=== PATIENT | male | born 1950 | race Caucasian/White ===

== ENCOUNTER 2019-04-17 09:56 | Outpatient (CLI) | payer MEDICARE, BC, SELFPAY ==
[2019-04-17 10:45] LABS: Alanine Aminotransferase 20 U/L (0-41); Albumin Level 3.8 g/dL (3.5-5.2); Alkaline Phosphatase 113 IU/L (40-130); Anion Gap 13.6 (5-19); Aspartate Amino Transferase 26 U/L (0-40); Blood Urea Nitrogen 16 mg/dL (8-23); Calcium 9.4 mg/dL (8.5-10.5); Carbon Dioxide 30 mmol/L (22-29); Chloride 103 mmol/L (98-107); Globulin 4.5 g/dL (1.3-4.6); Glomerular Filtration Rate 74.5 mL/min (90-130); Glucose 89 mg/dL (65-115); Potassium 4.6 mmol/L (3.5-5.1); Sodium 142 mmol/L (136-145); Total Bilirubin 0.3 mg/dL (0.15-1.2); Total Protein 8.3 g/dL (6.6-8.7)
[2019-04-17 11:44] LABS: Hepatitis B Surface Antigen. Reactive (Nonreactive)
== END 2019-04-17 09:57 | disposition home or self-care (01) ==
LOC: LAB 10:03
PROVIDERS: Family Provider Family Medicine; PCP Plastic Surgery; Visit Provider Internal Medicine Gastroenterology
DX: B18.1 Chronic viral hepatitis B without delta-agent (principal)
CPT/HCPCS: 36415; 80053; 87340

== ENCOUNTER 2019-12-05 14:54 | Outpatient (CLI) | payer MEDICARE, BC, SELFPAY ==
--- NOTE | 2019-12-05 14:58 | US_ITS ---
WS: [id number] RIGHT UPPER QUADRANT ULTRASOUND HISTORY: NON alcoholic cirrhosis. COMPARISON: 10/28/2018 Liver: 15.8 cm in length. Normal size liver. Coarsened echotexture with no mass. No bile duct dilatat ion. Gallbladder: Prior cholecystectomy. CBD: 0.3 cm Pancreas: Not well visualized. Right kidney: 9.9 cm in length. Normal size and echogenicity. No hydronephrosis or mass. Aorta and IVC: Unremarkable abdominal aorta and IVC. No ascites. US/US abdomen limited [id number] IMPRESSION: 1. Limited upper quadrant ultrasound due to body habitus. 2. Cirrhotic liver with no interval change. 3. Prior cholecystectomy.
[2019-12-05 16:43] LABS: Alanine Aminotransferase 22 U/L (0-41); Albumin Level 3.9 g/dL (3.5-5.2); Alkaline Phosphatase 93 IU/L (40-130); Anion Gap 10.7 (5-19); Aspartate Amino Transferase 26 U/L (0-40); Blood Urea Nitrogen 14 mg/dL (8-23); Carbon Dioxide 28 mmol/L (22-29); Chloride 105 mmol/L (98-107); Globulin 4.4 g/dL (1.3-4.6); Glomerular Filtration Rate 83.9 mL/min (90-130); Glucose 98 mg/dL (65-115); Osmolality Calculated 288 mOsm/kg (285-295); Potassium 4.7 mmol/L (3.5-5.1); Sodium 139 mmol/L (136-145); Total Bilirubin 0.6 mg/dL (0.15-1.2); Total Protein 8.3 g/dL (6.6-8.7)
[2019-12-05 18:14] LABS: Hepatitis B Surface Antigen Reactive (Nonreactive)
[2019-12-06 13:02] LABS: Hepatitis B Envelope Antigen NON-REACTIVE (NON-REACTIVE)
[2019-12-08 14:52] LABS: Hepatitis B Virus DNA <10 NOT DETECTED IU/mL (NOT DETECTED); Hepatitis B Virus DNA PCR <1.00 NOT DETECTED Log IU/mL (NOT DETECTED)
== END 2019-12-05 14:55 | disposition home or self-care (01) ==
LOC: US 14:55
PROVIDERS: PCP Family Medicine; Visit Provider Internal Medicine Gastroenterology
DX: K76.0 Fatty (change of) liver, not elsewhere classified (principal); K74.60 Unspecified cirrhosis of liver; Z90.49 Acquired absence of other specified parts of digestive tract
CPT/HCPCS: 36415; 76705; 80053; 86707; 87340; 87350; 87517

== ENCOUNTER 2019-12-15 08:11 | Outpatient (CLI) | payer MEDICARE, BC, SELFPAY ==
--- NOTE | 2019-12-15 10:29 | XR_ITS ---
WS: [id number] Right foot, 3 views, 12/15/2019 Clinical Data: PAIN/REDNESS/NONHEALING ULCER Comparison: None. Findings: No fractures or dislocations are seen. No bone destruction or erosion is noted. The joint spaces and soft tissues are normal. No evidence of osteomyelitis is seen. XR/XR foot RT min 3V* [id number] Impression: Negative right foot.
== END 2019-12-15 08:12 | disposition home or self-care (01) ==
LOC: WOUND 08:14
PROVIDERS: PCP Family Medicine; Visit Provider Surgery
DX: L97.512 Non-pressure chronic ulcer of other part of right foot with fat layer exposed (principal); R52 Pain, unspecified
CPT/HCPCS: 11042; 73630; G0463; L3260

== ENCOUNTER 2019-12-22 09:05 | Outpatient (CLI) | payer MEDICARE, BC, SELFPAY | END 2019-12-22 09:06 | disposition home or self-care (01) | LOC: WOUND 09:06 | PROVIDERS: PCP Family Medicine; Visit Provider Surgery | DX: L97.512 Non-pressure chronic ulcer of other part of right foot with fat layer exposed (principal) | CPT/HCPCS: 11042 ==

== ENCOUNTER 2019-12-29 09:12 | Outpatient (CLI) | payer MEDICARE, BC, SELFPAY | END 2019-12-29 09:13 | disposition home or self-care (01) | LOC: WOUND 09:13 | PROVIDERS: PCP Family Medicine; Visit Provider Nurse Practitioner Family | DX: L97.512 Non-pressure chronic ulcer of other part of right foot with fat layer exposed (principal) | CPT/HCPCS: 11042 ==

== ENCOUNTER 2020-01-05 10:13 | Outpatient (CLI) | payer MEDICARE, BC, SELFPAY | END 2020-01-05 10:14 | disposition home or self-care (01) | LOC: WOUND 10:14 | PROVIDERS: PCP Family Medicine; Visit Provider Surgery | DX: L97.512 Non-pressure chronic ulcer of other part of right foot with fat layer exposed (principal) | CPT/HCPCS: 11042 ==

== ENCOUNTER 2020-01-12 09:53 | Outpatient (CLI) | payer MEDICARE, BC, SELFPAY | END 2020-01-12 09:54 | disposition home or self-care (01) | LOC: WOUND 09:54 | PROVIDERS: PCP Family Medicine; Visit Provider Surgery | DX: I96 Gangrene, not elsewhere classified; Z87.891 Personal history of nicotine dependence; L97.512 Non-pressure chronic ulcer of other part of right foot with fat layer exposed | CPT/HCPCS: 11042 ==

== ENCOUNTER 2020-01-15 08:28 | Outpatient (CLI) | payer MEDICARE, BC, SELFPAY ==
--- NOTE | 2020-01-15 08:35 | USCV_ITS ---
Víctor Light Age: 69 Gender: M : 1950 Exam Date: 01/15/2020 08:37 Ordering Phys: Montana Phillips MD Technologist: Exam Location: [facility]_ Indication: non healing ulcer RIGHT LEFT Brachial 117.00 mmHg Brachial 154.00 mmHg Pressure (mmHg) Waveform Pressure (mmHg) Waveform 146.00 Above Knee 147.00 Below Knee 160.00 AGITATOR OPERATOR 147.00 DPA 1.04 Ankle/Brachial Index 117.00 Pre-Exercise Toe Pressure 0.76 Pre-Exercise Toe/Brachial Index FINDINGS Normal resting LENA on the right side. Normal resting TBI on the right side. PVR waveforms showing loss of dicrotic notch CONCLUSIONS No evidence of any significant arterial obstruction, based on the above findings. Some features of arterial sclerosis Dr uJany Ulloa MD [facility] (Electronically Signed) Final Date: 16 January 2020 10:49 S
== END 2020-01-15 08:29 | disposition home or self-care (01) ==
LOC: US 08:29
PROVIDERS: PCP Family Medicine; Visit Provider Surgery
DX: L97.919 Non-pressure chronic ulcer of unspecified part of right lower leg with unspecified severity (principal)
CPT/HCPCS: 93922

== ENCOUNTER 2020-01-26 09:39 | Outpatient (CLI) | payer MEDICARE, BC, SELFPAY | END 2020-01-26 09:40 | disposition home or self-care (01) | LOC: WOUND 09:40 | PROVIDERS: PCP Family Medicine; Visit Provider Surgery | DX: L97.512 Non-pressure chronic ulcer of other part of right foot with fat layer exposed (principal) | CPT/HCPCS: 11042 ==

== ENCOUNTER 2020-02-02 10:10 | Outpatient (CLI) | payer MEDICARE, BC, SELFPAY | END 2020-02-02 10:11 | disposition home or self-care (01) | LOC: WOUND 10:13 | PROVIDERS: PCP Family Medicine; Visit Provider Surgery | DX: Z09 Encounter for follow-up examination after completed treatment for conditions other than malignant neoplasm (principal) | CPT/HCPCS: 99212 ==

== ENCOUNTER 2020-02-09 14:26 | Outpatient (CLI) | payer MEDICARE, BC, SELFPAY | END 2020-02-09 14:27 | disposition home or self-care (01) | LOC: WOUND 14:27 | PROVIDERS: Visit Provider Surgery | DX: L97.512 Non-pressure chronic ulcer of other part of right foot with fat layer exposed (principal) | CPT/HCPCS: 11042 ==

== ENCOUNTER 2020-02-13 15:20 | Outpatient (CLI) | payer MEDICARE, BC, SELFPAY | END 2020-02-13 15:21 | disposition home or self-care (01) | LOC: WOUND 15:21 | PROVIDERS: Visit Provider Nurse Practitioner Family | DX: I96 Gangrene, not elsewhere classified (principal); L97.512 Non-pressure chronic ulcer of other part of right foot with fat layer exposed | CPT/HCPCS: 11042 ==

== ENCOUNTER 2020-02-19 14:20 | Outpatient (CLI) | payer MEDICARE, BC, SELFPAY | END 2020-02-19 14:21 | disposition home or self-care (01) | LOC: WOUND 14:22 | PROVIDERS: Visit Provider Nurse Practitioner Family | DX: Z09 Encounter for follow-up examination after completed treatment for conditions other than malignant neoplasm (principal) | CPT/HCPCS: 99212 ==

== ENCOUNTER 2020-02-28 06:00 | Outpatient (RCR) | payer MEDICARE, BC, SELFPAY | END 2020-03-24 23:59 | disposition home or self-care (01) | LOC: SPT 06:00 | PROVIDERS: Referring Provider Nurse Practitioner Family; Visit Provider Nurse Practitioner Family | DX: G25.0 Essential tremor (principal) | CPT/HCPCS: 97110; 97112; 97161 ==

== ENCOUNTER 2020-03-25 06:00 | Outpatient (RCR) | payer MEDICARE, BC, SELFPAY | END 2020-04-21 23:59 | disposition home or self-care (01) | LOC: SPT 06:00 | PROVIDERS: Referring Provider Nurse Practitioner Family; Visit Provider Nurse Practitioner Family | DX: G25.0 Essential tremor (principal) | CPT/HCPCS: 97110; 97112; 97530 ==

== ENCOUNTER 2020-04-22 06:00 | Outpatient (RCR) | payer MEDICARE, BC, SELFPAY | END 2020-05-22 23:59 | disposition home or self-care (01) | LOC: SPT 06:00 | PROVIDERS: Referring Provider Nurse Practitioner Family; Visit Provider Nurse Practitioner Family | DX: G25.0 Essential tremor (principal) | CPT/HCPCS: 97110 ==

== ENCOUNTER 2020-04-24 09:29 | Emergency (ER) | payer MEDICARE, BC, SELFPAY ==
[2020-04-24 09:31] VITALS: BP 152/88; PULSE 64; RESP 18; TEMP 36.5; O2SAT 98; BMI 38.7
--- NOTE | 2020-04-24 09:40 | XR_ITS ---
WS: [id number] Chest with left rib detail, 04/24/2020 Clinical Data: fall/pain Comparison: Portable chest, 03/10/2017. Findings: The lungs show no nodules, masses, or effusions. The heart is normal. No pneumonia or pneumothorax is seen. The aortic arch is tortuous. There are stimulator generators overlying both lower lungs with wires ex tending superiorly. The ribs are intact. No rib fractures seen. No subcutaneous emphysema is present. The left stimulator generator obscures slight detail over the left superior ribs. There are clips in the right upper quadrant from a cholecystectomy XR/XR ribs LT mn 3V w CXR1V [id number] Impression: Negative chest with left rib detail.
--- NOTE | 2020-04-24 09:40 | W.ED.FALL ---
HPI - Fall General: Chief Complaint: Fall Stated Complaint: post fall/pain in ribs Time Seen by Provider: 04/24/20 09:33 Source: patient Mode of arrival: ambulatory Limitations: no limitations History of Present Illness: HPI Narrative: Patient is a 69-year-old male who presents to ED today with a complaint of left rib pain. Patient tells me approximately a week ago he slipped and fell on ice and landed onto his chest and left side. Patient tells me he began having pain immediately. He states pain has failed to improve thus prompting his visit today. He is having pain with deep inhalation, coughing, and palpation over the left anterior ribs. He denies abdominal pain, nausea, vomiting. Denies lightheadedness, dizziness, syncopal episodes. MD complaint: fall Onset (ago): day(s) Fall from: standing Fall witnessed: no Place fall occurred: home Loss of consciousness: None Prolonged down time: no Symptoms prior to fall: none Context: tripped/slipped (slipped on ice) Location of injury: chest Associated symptoms-after fall: Reports no associated symptoms and chest pain (L rib pain); Denies abdominal pain, difficulty walking, headache(s), lightheadedness or neck pain Review of Systems Const: Denies: fever(s), chills, body aches, fatigue or malaise Eyes: Denies: change in vision, blurry vision or photophobia ENMT: Denies: odynophagia Card: Reports: chest pain (L rib pain); Denies: palpitations, irregular heart rhythm, edema, swelling of feet/ankles, lightheadedness, syncope, pre-syncope, dyspnea on exertion, orthopnea or leg pain with exertion Resp: Denies: dyspnea, productive cough, non-productive cough, wheezing, pain on inspiration, hemoptysis or chest congestion GI: Denies: abdominal pain, nausea, vomiting, heartburn or diarrhea : Denies: flank pain, difficulty urinating or dysuria Musc: Denies: neck pain, back pain or joint pain Skin/Breast: Denies: rash Neuro: Denies: headache(s), numbness in extremities, weakness in extremities, sensory changes, difficulty walking, frequent falls or dizziness Physical Exam Const: COMMON NORMALS: no acute distress, patient oriented x3, no limitations and alert GENERAL APPEARANCE: cooperative NUTRITIONAL APPEARANCE: obese ORIENTATION/CONSCIOUSNESS: Yes awake, Yes oriented to person, Yes oriented to place and Yes oriented to time HENMT: COMMON NORMALS: normocephalic and atraumatic HEAD & SCALP: normocephalic and atraumatic Neck/C-Spine: COMMON NORMALS: full ROM GENERAL: Yes normal visual inspection CERVICAL SPINE: Yes cervical ROM normal, No pain with cervical ROM, No Cervical spine tenderness and No Paracervical muscle tenderness Chest: COMMONS NORMALS: normal inspection of the chest OTHER: TTP of ribs just under L breast; palpation directly reproduces patient's pain; no crepitus; lungs CTA Chest images (male): 1. TTP Resp: COMMON NORMALS: normal respiratory effort and clear to auscultation bilaterally AUSCULTATION: clear to auscultation bilaterally Cardio: COMMON NORMALS: regular rate and regular rhythm RATE: regular rate RHYTHM: regular rhythm GI: COMMON NORMALS: Normal to inspection, nondistended, normoactive bowel sounds present, Soft to palpation, non-tender, No hepatosplenomegaly present and no masses INSPECTION: Yes normal to inspection and Yes other (no ecchymosis to chest or abdomen ) PALPATION: Yes Soft to palpation and Yes No hepatosplenomegaly present Back/Pelvis: COMMON NORMALS: thoracic and lumbar spine normal to inspection, no thoracic nor lumbar tenderness and thoraco-lumbar ROM normal Extremity: COMMON NORMALS: normal to inspection and full ROM GENERAL: Yes normal exam except as noted Neuro: COMMON NORMALS: patient oriented x3 SENSORIUM/ORIENTATION: Yes alert, Yes oriented to person, Yes oriented to place and Yes oriented to time Skin: COMMON NORMALS: no rashes or lesions noted GENERAL SKIN EXAM: no rashes or lesions noted Course Vital Signs: Vital signs: Vital Signs Temperature 98.9 F 04/24/20 09:43 Pulse Rate 62 04/24/20 10:50 Respiratory Rate 16 04/24/20 10:50 Blood Pressure 109/62 04/24/20 10:50 Pulse Oximetry 98 04/24/20 10:50 MDM - Fall Imaging Data^: CXR with L ribs: Radiologist's impression: [facility] [address] [place] [address] XRay Report Signed Patient: Víctor Light Unit #: [id number] : 1950 Age/Sex: 69 / M ADM Date: 04/24/20 Loc: ER Room/Bed: Attending Dr: Ordering Provider/Ordering MD: Aditi Gomez Date of Service: 04/24/20 Procedure(s): XR ribs LT mn 3V w CXR1V [id number] Accession Number(s): [id number] Report Number: [id number] WS: [id number] Chest with left rib detail, 04/24/2020 Clinical Data: fall/pain Comparison: Portable chest, 03/10/2017. Findings: The lungs show no nodules, masses, or effusions. The heart is normal. No pneumonia or pneumothorax is seen. The aortic arch is tortuous. There are stimulator generators overlying both lower lungs with wires extending superiorly. The ribs are intact. No rib fractures seen. No subcutaneous emphysema is present. The left stimulator generator obscures slight detail over the left superior ribs. There are clips in the right upper quadrant from a cholecystectomy XR/XR ribs LT mn 3V w CXR1V 72223 Impression: Negative chest with left rib detail. Dictated By: Lorna Liu MD Signed By: Lorna Liu MD Signed Date/Time: 04/24/20 1045 DD/ 1042 Discharge Plan Discharge Patient Disposition: Home Clinical Impression: Contusion of rib on left side Qualifiers: Encounter type: initial encounter Qualified Code(s): S20.212A - Contusion of left front wall of thorax, initial encounter Condition: Stable Prescriptions: New hydrocodone-acetaminophen 5-325 mg tablet 1 tab PO Q6H PRN (Reason: pain) Qty: 14 RF: 0 No Action multivitamin Tablet 1 tab PO BID RF: 0 Vitamin C 1,000 mg Tablet 1,000 mg PO Q12H RF: 0 flaxseed oil 1,000 mg Capsule 1,000 mg PO DAILY RF: 0 propranolol 40 mg tablet 40 mg PO TID RF: 0 tolterodine 2 mg tablet 2 mg PO BID RF: 0 Colace 100 mg Capsule 100 mg PO TID RF: 0 tenofovir disoproxil fumarate 300 mg Tablet 300 mg PO DAILY RF: 0 Senna Laxative 25 mg Tablet 25 mg PO QPM RF: 0 Fish Oil 1,000 mg (120 mg-180 mg) Capsule 1 cap PO DAILY RF: 0 saw palmetto 1 cap PO BID RF: 0 Discharge Orders: Discharge ED (Routine); Ordered 04/24/20 Ordered By: Aditi Gomez Patient Instructions: Opioid Safety Activity Restrictions/Additional Instructions: [facility] is committed to fighting the nationwide opiate epidemic. We are providing ALL patients with information regarding opiate safety. If you received opiate pain medication during your stay or if you received a prescription for opiate pain medication-please review this handout. If not, you may disregard. Thank you. Please return to the emergency department for worsening pain, difficulty breathing, fevers, pain moving into your shoulder or jaw, abdominal pain, abdominal bruising, vomiting, or any other concerns you may have. Coding Level of Care Code ED Salvage Determiner for Day Fuentes Exam Comprehensive
[2020-04-24 09:43] VITALS: BP 152/88; PULSE 62; RESP 20; TEMP 37.2; O2SAT 97
[2020-04-24 10:50] VITALS: BP 109/62; PULSE 62; RESP 16; O2SAT 98
--- NOTE | 2020-04-24 10:51 | PC.NURSE ---
patient stated as long as i am not moving the pain is 1, if I try to lift my arm, the pain will be 7 or 8 , no acute distress noted at this time.
[2020-04-24 11:21] VITALS: BP 127/70; PULSE 66; RESP 16; O2SAT 98
== END 2020-04-24 11:22 | disposition home or self-care (01) ==
PROVIDERS: Emergency Provider Physician Assistant
DX: S20.212A Contusion of left front wall of thorax, initial encounter (principal); W00.0XXA Fall on same level due to ice and snow, initial encounter
CPT/HCPCS: 71101; 99282

== ENCOUNTER 2020-09-16 07:52 | Outpatient (CLI) | payer MEDICARE, BC, SELFPAY ==
--- NOTE | 2020-09-16 08:03 | US_ITS ---
WS: [id number] ULTRASOUND ABDOMEN LIMITED CLINICAL INFORMATION: CHRONIC HEPATITIS B VIRUS INFECTION/FATTY LIVER COMPARISON: Ultrasound December 05, 2019 FINDINGS: Liver Size: Mild hepatomegaly Craniocaudal length: 14.7 cm. Echogenicity: Coarse Surface nodularity: None. Mass (size and location): None. Bile ducts Intrahepatic ducts: Normal. Common bile duct diameter: 0.6 cm. Gallbladder Removed Pancreas Normal as visualized. Right kidney: Normal. Hydronephrosis: None. Size: 10.1 cm x 5.6 cm x 5.7 cm. Abdominal aorta and IVC Visualized portions are normal. Ascites: None. US/US abdomen limited [id number] IMPRESSION: 1. Mild hepatomegaly. Coarse hepatic echotexture likely due to hepatocellular disease. 2. Cholecystectomy. 3. No hydronephrosis in right kidney.
[2020-09-16 09:14] LABS: Tumor Marker Alpha Fetoprotein 1.5 ng/mL (0-8.3)
[2020-09-16 12:55] LABS: Hepatitis B Surface Antigen Reactive (Nonreactive)
[2020-09-17 12:57] LABS: Hepatitis B Envelope Antigen NON-REACTIVE (NON-REACTIVE); Hepatitis B Virus DNA <10 DETECTED IU/mL (NOT DETECTED); Hepatitis B Virus DNA PCR <1.00 DETECTED Log IU/mL (NOT DETECTED)
== END 2020-09-16 07:53 | disposition home or self-care (01) ==
PROVIDERS: PCP Family Medicine; Visit Provider Internal Medicine Gastroenterology
DX: B18.1 Chronic viral hepatitis B without delta-agent (principal); R16.0 Hepatomegaly, not elsewhere classified; Z90.49 Acquired absence of other specified parts of digestive tract
CPT/HCPCS: 36415; 76705; 82105; 86707; 87340; 87350; 87517

== ENCOUNTER 2020-09-19 08:27 | Outpatient (RCR) | payer MEDICARE, BC, SELFPAY | END 2020-09-21 23:59 | disposition home or self-care (01) | LOC: SOT 08:27 | PROVIDERS: PCP Family Medicine; Referring Provider Nurse Practitioner Family; Visit Provider Nurse Practitioner Family | DX: G25.0 Essential tremor (principal) | CPT/HCPCS: 97167 ==

== ENCOUNTER 2020-09-22 06:00 | Outpatient (RCR) | payer MEDICARE, BC, SELFPAY | END 2020-10-22 23:59 | disposition home or self-care (01) | LOC: SOT 06:00 | PROVIDERS: PCP Family Medicine; Referring Provider Nurse Practitioner Family; Visit Provider Nurse Practitioner Family | DX: G25.0 Essential tremor (principal) | CPT/HCPCS: 97110; 97530; 97535 ==

== ENCOUNTER 2021-03-26 07:07 | Outpatient (CLI) | payer MEDICARE, BC, SELFPAY ==
--- NOTE | 2021-03-26 07:28 | US_ITS ---
WS: [id number] ULTRASOUND ABDOMEN LIMITED CLINICAL INFORMATION: HCC SCREEN HEPATITIS B,NAFLD COMPARISON: September 16, 2020 FINDINGS: Liver Size: Mild hepatomegaly Craniocaudal length: 16.2 cm. Echogenicity: Coarse Surface nodularity: None. Mass (size and location): None. Bile ducts Intrahepatic ducts: Normal. Common bile duct diameter: 0.4 cm. Gallbladder Removed Pancreas Not well visualized due to bowel gas Right kidney: Normal. Hydronephrosis: None. Size: 10.1 cm x 6.1 cm x 5.7 cm. Abdominal aorta and IVC Visualized portions are normal. Ascites: None. US/US abdomen limited [id number] IMPRESSION: 1. Mild hepatomegaly with diffuse fatty infiltration. 2. Prior cholecystectomy. 3. No hydronephrosis in right kidney. 4. Normal common bile duct measuring 3.9 mm
[2021-03-26 09:22] LABS: Tumor Marker Alpha Fetoprotein 1.8 ng/mL (0-8.3)
[2021-03-26 09:23] LABS: Hepatitis B Surface AB 3.5 (11.5-1000); Hepatitis B Surface Antigen Reactive (Nonreactive)
[2021-03-26 09:34] LABS: Alanine Aminotransferase 22 U/L (0-41); Albumin Level 3.7 g/dL (3.5-5.2); Alkaline Phosphatase 103 IU/L (40-130); Anion Gap 13.2 (5-19); Aspartate Amino Transferase 36 U/L (0-40); Blood Urea Nitrogen 14 mg/dL (8-23); Calcium 8.5 mg/dL (8.5-10.5); Carbon Dioxide 26 mmol/L (22-29); Chloride 102 mmol/L (98-107); Globulin 4.1 g/dL (1.3-4.6); Glomerular Filtration Rate 83.7 mL/min (90-130); Glucose 83 mg/dL (65-115); Osmolality Calculated 284 mOsm/kg (285-295); Potassium 4.2 mmol/L (3.5-5.1); Sodium 137 mmol/L (136-145); Total Bilirubin 0.6 mg/dL (0.15-1.2); Total Protein 7.8 g/dL (6.6-8.7)
[2021-03-29 11:27] LABS: Hepatitis B Envelope Antigen NON-REACTIVE (NON-REACTIVE)
[2021-03-29 23:36] LABS: Hepatitis B Virus DNA <10 NOT DETECTED IU/mL (NOT DETECTED); Hepatitis B Virus DNA PCR <1.00 NOT DETECTED Log IU/mL (NOT DETECTED)
== END 2021-03-26 07:08 | disposition home or self-care (01) ==
LOC: RAD 07:23
PROVIDERS: PCP Family Medicine; Visit Provider Internal Medicine Gastroenterology
DX: B18.1 Chronic viral hepatitis B without delta-agent (principal); R16.0 Hepatomegaly, not elsewhere classified; K76.0 Fatty (change of) liver, not elsewhere classified; Z90.49 Acquired absence of other specified parts of digestive tract
CPT/HCPCS: 36415; 76705; 80053; 82105; 86706; 87340; 87350; 87517

== ENCOUNTER 2021-07-24 13:40 | Outpatient (CLI) | payer MEDICARE, BC, SELFPAY ==
[2021-07-24 14:41] LABS: Basophils # 0.1 10^3/uL (0.0-0.1); Basophils % 0.5 %; Eosinophils # 0.1 10^3/uL (0.0-0.8); Eosinophils % 0.9 %; Hematocrit 40.9 % (42.0-52.0); Hemoglobin 13.1 g/dL (11.7-16.6); Lymphocytes # 3.1 10^3/uL (0.8-4.8); Lymphocytes % 31.6 %; Mean Corpuscular Hemoglobin 31.4 pg (28.0-34.0); Mean Corpuscular Volume 98.1 fl (80-94); Mean Platelet Volume 9.1 fL (7.4-10.4); Monocytes # 1.5 10^3/uL (0.2-0.9); Monocytes % 14.9 %; Neutrophils # 5.02 10^3/uL (1.8-7.7); Neutrophils % 51.8 %; Nucleated Red Blood Cells % 0 %; Platelet Count 206 10^3/cmm (130-400); Red Blood Count 4.17 10^6/uL (4.1-5.3); Red Cell Distribution Width 13.4 % (12.1-15.1); White Blood Count 9.7 10^3/uL (4.0-10.0)
[2021-07-24 16:40] LABS: Erythrocyte Sedimentation Rate 35 mm/hr (0-10)
== END 2021-07-24 13:41 | disposition home or self-care (01) ==
PROVIDERS: PCP Family Medicine; Visit Provider Neurological Surgery
DX: G25.0 Essential tremor (principal)
CPT/HCPCS: 85025; 85651; 86140

== ENCOUNTER 2021-09-15 06:07 | Outpatient (CLI) | payer MEDICARE, BC, SELFPAY ==
--- NOTE | 2021-09-15 | US_ITS ---
WS: [id number] RIGHT UPPER QUADRANT ULTRASOUND HISTORY: FOLLOW UP ON FATTY LIVER. COMPARISON: 03/26/2021, 11/23/2016 and 09/16/2020 Liver: 16.2 cm in length. Liver is normal size with only very mild increased echogenicity. The portal triads are still evident. No mass or bile duct dilatation. The liver has improved in size and steato sis since 2017. Portal Vein: Normal hepatopetal flow with monophasic waveform. Gallbladder: Status post cholecystectomy. CBD: 0.7 cm Pancreas: Normal size and echogenicity. Right kidney: 10.4 cm in length. Normal size and echogenicity. No hydronephrosis or mass. Aorta and IVC: Unremarkable abdominal aorta and IVC. No ascites. US/US abdomen limited 03107 IMPRESSION: 1. Status post cholecystectomy. 2. Normal size liver with only minimal coarse echotexture which could be relat ed to minimal hepatic steatosis or hepatocellular disease such as cirrhosis. As compared to prior studies from 2017 liver has decreased in size and also hepat ic steatosis.
== END 2021-09-15 06:08 | disposition home or self-care (01) ==
LOC: RAD 06:08
PROVIDERS: PCP Family Medicine; Visit Provider Internal Medicine Gastroenterology
DX: K76.0 Fatty (change of) liver, not elsewhere classified (principal); Z90.49 Acquired absence of other specified parts of digestive tract
CPT/HCPCS: 76705

== ENCOUNTER 2021-10-14 06:00 | Outpatient (RCR) | payer MEDICARE, BC, SELFPAY | END 2021-10-22 23:59 | disposition home or self-care (01) | LOC: SST 06:00 | PROVIDERS: PCP Family Medicine; Visit Provider Nurse Practitioner Gerontology | DX: R13.10 Dysphagia, unspecified (principal) | CPT/HCPCS: 92610 ==

== ENCOUNTER 2021-11-27 10:42 | Outpatient (CLI) | payer MEDICARE, BC, SELFPAY ==
--- NOTE | 2021-11-27 10:55 | FL_ITS ---
WS: [id number] FL barium swallow modifd 62200 REASON FOR EXAM: Other dysphagia FLUOROSCOPY TIME: 2min [id number] # OF SPOT FILMS: 1 FINDINGS: Examination was supervised by the speech therapy department. With the patient in the upright sitting position the swallowing of varying consistencies of barium wa s monitored and recorded fluoroscopically. Patient was noted to aspirate without proper chin tuck. Detailed analysis report will be rendered by the speech therapy department. FL/FL barium swallow modifd [id number] IMPRESSION: Modified barium swallow as above.
== END 2021-11-27 10:43 | disposition home or self-care (01) ==
LOC: RAD 10:45
PROVIDERS: PCP Family Medicine; Visit Provider Psychiatry & Neurology Neurology
DX: G25.0 Essential tremor (principal); R13.19 Other dysphagia
CPT/HCPCS: 74230; 92611

== ENCOUNTER 2021-12-23 06:00 | Outpatient (RCR) | payer MEDICARE, BC, SELFPAY | END 2022-01-20 16:37 | disposition home or self-care (01) | LOC: SST 06:00 | PROVIDERS: PCP Family Medicine; Visit Provider Nurse Practitioner Gerontology | DX: R13.10 Dysphagia, unspecified (principal) | CPT/HCPCS: 92526 ==

== ENCOUNTER → 2021-12-30 07:58 | Outpatient (BNVA) | payer MEDICARE, BC, SELFPAY | PROVIDERS: PCP Family Medicine; Visit Provider Surgery | DX: Z86.010 Personal history of colon polyps (principal) | CPT/HCPCS: 99203 ==

== ENCOUNTER 2022-03-11 06:54 | Day surgery (SDC) | payer MEDICARE, BC, SELFPAY ==
[2022-03-09 13:14] VITALS: BMI 28.3
[2022-03-11 07:11] VITALS: BP 97/58; PULSE 56; RESP 18; TEMP 36.2; O2SAT 98
[2022-03-11] MEDS: sodium chloride 0.9% 1,000 ML 30 ML IV (07:29)
--- NOTE | 2022-03-11 07:50 | ANES.PREANE2 ---
Pre-Anesthetic Assessment Height/Weight: Height 1.74 m Weight 85.729 kg Temp Pulse Resp BP Pulse Ox O2 Del Method 97.1 F L 56 L 18 97/58 98 03/11/22 07:11 03/11/22 07:11 03/11/22 07:11 03/11/22 07:11 03/11/22 07:11 03/11/22 07:11 Preop Diagnosis: Screening Operation Date: 03/11/22 08:30 Proposed Procedures p Colonoscopy 50446,Z86.010(Not Applicable) - Graeme Zurita DO Familial anesthetic complications: None Was Beta Josse taken within 24 hours: Yes Was Clonidine taken within 24 hours: N/A Last intake: Intake Last Liquid Date 03/10/22 Last Liquid Time 22:00 Last Solid Date 03/09/22 Last Solid Time 23:00 Social No alcohol and No tobacco Previous smoker- quit 1987 Exam alert, oriented x 3, clear to auscultation bilaterally and regular rate & rhythm Airway Submandibular: within normal limits Cervical ROM: within normal limits Mallampati: Class II Dentition: false History/ROS No significant history except as noted Pulmonary None reported CV/HEM None reported Takes propanolol for tremor None reported Hepatic Chronic Hepatitis B GI None reported Metabolic None reported Musc/skel None reported Neuropsych Dual DBS for essential tremor Anesthetic Plan ASA status: 3 Anesthesia: Anesthesia Evaluation and MAC Risk of > 500 ml blood loss (7ml/kg in children): No Medications/Allergies Home Medications Medication Instructions Recorded Confirmed Last Taken Type ascorbic acid (vitamin C) 1,000 mg 1,000 mg PO Q12H 04/24/20 03/11/22 03/09/22 History tablet (Vitamin C) docusate sodium 100 mg capsule 100 mg PO TID 04/24/20 03/11/22 03/10/22 History (Colace) flaxseed oil 1,000 mg capsule 1,000 mg PO DAILY 04/24/20 03/11/22 03/09/22 History hydrocodone 5 mg-acetaminophen 325 1 tab PO Q6H PRN pain #14 tabs 04/24/20 03/11/22 Unknown Rx mg tablet multivitamin 1 tab PO BID 04/24/20 03/11/22 03/09/22 History omega 4-vdh-gaz-fish oil 1,000 mg 1 cap PO DAILY 0303/11/22 03/09/22 History (120 mg-180 mg) capsule (Fish Oil) propranolol 40 mg tablet 40 mg PO TID 04/24/20 03/11/22 03/11/22 History saw palmetto 1 cap PO BID 04/24/20 03/11/22 03/09/22 History sennosides 25 mg tablet 25 mg PO QPM 04/24/20 03/11/22 03/09/22 History tenofovir disoproxil fumarate 300 300 mg PO DAILY 04/24/20 03/11/22 03/11/22 History mg tablet tolterodine 2 mg tablet 2 mg PO BID 04/24/20 03/11/22 03/09/22 History fiber 2.6 cap PO QID 03/09/22 03/11/22 03/09/22 History lactobacillus comb no.10 20 20,000 mmu cells PO BID 03/09/22 03/11/22 03/09/22 History billion cell capsule (Probiotic) Allergies Allergy/AdvReac Type Severity Reaction Status Date / Time adhesive Allergy Unknown Verified 03/11/22 07:08 adhesive tape Allergy Unknown Verified 03/11/22 07:08 butorphanol [From Stadol] Allergy ADR/ALGY-Hy Verified 03/11/22 07:08 potension Iodinated Contrast Media Allergy ALGY-Bliste Verified 03/11/22 07:08 r Current Medications Generic Name Dose Route Start Last Admin Trade Name Freq PRN Reason Stop Dose Admin Sodium Chloride 1,000 mls @ 30 mls/hr 03/11/22 07:00 03/11/22 07:29 Sodium Chloride 0.9% IV 03/12/22 06:59 30 mls/hr .Q24H TISHA Administration PFSH Anesthesia Medical History (Updated 12/30/21 @ 08:29 by Graeme Zurita DO) History of colon polyps History of hemorrhoids Surgical History History of colonoscopy History of laparoscopic appendectomy History of laparoscopic cholecystectomy History of rhinoplasty History of tonsillectomy and adenoidectomy Status post deep brain stimulator placement Social History Smoking and tobacco status: former smoker Data Anesthesia Cardiac Studies: No Data to Display
--- NOTE | 2022-03-11 08:47 | P.HP_ITS ---
Providers/Chief Complaint Primary Care Provider: Miladis Farias MD Chief Complaint: Z86.010 History of Present Illness Víctor Light is a 71 year old male here for colonoscopy Medications/Allergies Home Medications Medication Instructions Recorded Confirmed Last Taken Type ascorbic acid (vitamin C) 1,000 mg 1,000 mg PO Q12H 04/24/20 03/11/22 03/09/22 H istory tablet (Vitamin C) docusate sodium 100 mg capsule 100 mg PO TID 04/24/20 03/11/22 03/10/22 History (Colace) flaxseed oil 1,000 mg capsule 1,000 mg PO DAILY 04/24/20 03/11/22 03/09/22 History hydrocodone 5 mg-acetaminophen 325 1 tab PO Q6H PRN pain #14 tabs 04/24/20 03/11/22 Unknown Rx mg tablet multivitamin 1 tab PO BID 04/24/20 03/11/22 03/09/22 History omega 7-rtl-wuq-fish oil 1,000 mg 1 cap PO DAILY 04/24/20 03/11/22 03/09/22 History (120 mg-180 mg) capsule (Fish Oil) propranolol 40 mg tablet 40 mg PO TID 04/24/20 03/11/22 03/11/22 History saw palmetto 1 cap PO BID 04/24/20 03/11/22 03/09/22 History sennosides 25 mg tablet 25 mg PO QPM 04/24/20 03/11/22 03/09/22 History tenofovir disoproxil fumarate 300 300 mg PO DAILY 04/24/20 03/11/22 03/11/22 History mg tablet tolterodine 2 mg tablet 2 mg PO BID 04/24/20 03/11/22 03/09/22 History fiber 2.6 cap PO QID 03/09/22 03/11/22 03/09/22 History lactobacillus comb no.10 20 20,000 mmu cells PO BID 03/09/22 03/11/22 03/09/22 History billion cell capsule (Probiotic) Allergies Allergy/AdvReac Type Severity Reaction Status Date / Time adhesive Allergy Unknown Verified 03/11/22 07:08 adhesive tape Allergy Unknown Verified 03/11/22 07:08 butorphanol [From Stadol] Allergy ADR/ALGY-Hy Verified 03/11/22 07:08 potension Iodinated Contrast Media Allergy LALA-Carlos Verified 03/11/22 07:08 r PFSH Acute PFSH: Medical History (Updated 12/30/21 @ 08:29 by Graeme Zurita DO) History of colon polyps History of hemorrhoids Surgical History History of colonoscopy History of laparoscopic appendectomy History of laparoscopic cholecystectomy History of rhinoplasty History of tonsillectomy and adenoidectomy Status post deep brain stimulator placement Social History Smoking and tobacco status: former smoker Vitals/I&O/Wt Last Vital Signs Temp 97.1 F L 03/11/22 07:11 Pulse 56 L 03/11/22 07:11 Resp 18 03/11/22 07:11 BP 97/58 03/11/22 07:11 Pulse Ox 98 03/11/22 07:11 O2 Del Method 03/11/22 07:11 Weight last 48 hrs Weight 189 lb A&P Assessment and plan (1) History of colon polyps: Plan Colonoscopy Attestations Medical Necessity Statement*: Home Coding Level of Care Code Acute Code for Chg Fwd Diagnoses History of colon polyps Z86.010
[2022-03-11 09:34] VITALS: BP 96/65; PULSE 54; RESP 16; TEMP 36.2; O2SAT 100
[2022-03-11 09:44] VITALS: BP 107/54; PULSE 54; RESP 16; O2SAT 99
--- NOTE | 2022-03-11 09:52 | ANE.PACU2 ---
Inpatient post-anesthesia follow up: Airway intact: Yes Vital signs: Temperature 97.1 F Pulse Rate 54 Respiratory Rate 16 Blood Pressure 96/65 Pulse Oximetry 100 Oxygen Delivery Me thod Nasal Cannula Oxygen Flow Rate 2 Fraction of Inspir ed Oxygen Hydration adequate: Yes Nausea and vomiting: No Pain level: 1 Mental status: Baseline
== END 2022-03-11 10:12 | disposition home or self-care (01) ==
PROVIDERS: PCP Family Medicine; Visit Provider Surgery
PROC: 0DJD8ZZ Inspection of Lower Intestinal Tract, Via Natural or Artificial Opening Endoscopic (ICD-10-PCS; CPT 45378; principal; 2022-03-11 08:30)
DX: Z12.11 Encounter for screening for malignant neoplasm of colon (principal); Z86.010 Personal history of colon polyps; K57.30 Diverticulosis of large intestine without perforation or abscess without bleeding; D12.2 Benign neoplasm of ascending colon; Z87.891 Personal history of nicotine dependence
CPT/HCPCS: 45385; 88305; J2704; J7030

== ENCOUNTER → 2022-04-02 16:07 | Outpatient (BNVA) | payer MEDICARE, BC, SELFPAY | PROVIDERS: PCP Family Medicine; Visit Provider Surgery | DX: Z09 Encounter for follow-up examination after completed treatment for conditions other than malignant neoplasm (principal); D12.6 Benign neoplasm of colon, unspecified | CPT/HCPCS: 99212 ==

== ENCOUNTER 2022-04-23 06:28 | Outpatient (CLI) | payer MEDICARE, BC, SELFPAY ==
--- NOTE | 2022-04-23 | US_ITS ---
WS: [id number] RIGHT UPPER QUADRANT ULTRASOUND HISTORY: CHRONIC HEP B, HCC SCREENING COMPARISON: 09/15/2021 Liver: 16.4 cm in length. Normal size. Very minimal coarse echotexture. Portal triads are still evide nt. No interval progression since the prior study. No surface nodularity identified. No mass. Portal Vein: Normal hepatopetal flow with monophasic waveform. Gallbladder: Status post cholecystectomy. CBD: 0.5 cm Pancreas: Limited visualization of the pancreas. Right kidney: 9.6 cm in length. Normal size and echogenicity. No hydronephrosis or mass. Aorta and IVC: Unremarkable abdominal aorta and IVC. No ascites. US/US abdomen limited [id number] IMPRESSION: 1. Prior cholecystectomy. 2. Very minimal coarse echotexture throughout the liver. Similar to the prior study with no progression. No mass or bile duct dilatation.
[2022-04-23 11:02] LABS: Basophils % 0.3 %; Eosinophils # 0.1 10^3/uL (0.0-0.8); Eosinophils % 0.9 %; Hemoglobin 13.3 g/dL (11.7-16.6); Lymphocytes # 2.3 10^3/uL (0.8-4.8); Mean Corpuscular HGB Conc 32.4 g/dL (30.0-36.0); Mean Corpuscular Hemoglobin 31.1 pg (28.0-34.0); Mean Corpuscular Volume 95.8 fl (80-94); Mean Platelet Volume 8.8 fL (7.4-10.4); Monocytes # 1.2 10^3/uL (0.2-0.9); Monocytes % 13.7 %; Neutrophils # 5.09 10^3/uL (1.8-7.7); Neutrophils % 58.5 %; Nucleated Red Blood Cells % 0 %; Platelet Count 245 10^3/cmm (130-400); Red Blood Count 4.28 10^6/uL (4.1-5.3); Red Cell Distribution Width 12.9 % (12.1-15.1); White Blood Count 8.7 10^3/uL (4.0-10.0)
[2022-04-23 11:32] LABS: Tumor Marker Alpha Fetoprotein 1.8 ng/mL (0-8.3)
[2022-04-23 11:38] LABS: Hepatitis B Surface Antigen Reactive (Nonreactive)
[2022-04-23 11:44] LABS: Alanine Aminotransferase 18 U/L (0-41); Albumin Level 3.4 g/dL (3.5-5.2); Alkaline Phosphatase 104 U/L (40-130); Anion Gap 11.1 (5-19); Aspartate Amino Transferase 25 U/L (0-40); Blood Urea Nitrogen 14 mg/dL (8-23); Calcium 8.8 mg/dL (8.5-10.5); Carbon Dioxide 29 mmol/L (22-29); Chloride 102 mmol/L (98-107); Globulin 4.8 g/dL (1.3-4.6); Glomerular Filtration Rate 83.4 mL/min (90-130); Glucose 80 mg/dL (65-115); Osmolality Calculated 285 mOsm/kg (285-295); Potassium 4.1 mmol/L (3.5-5.1); Sodium 138 mmol/L (136-145); Total Bilirubin 0.3 mg/dL (0.15-1.2); Total Protein 8.2 g/dL (6.6-8.7)
[2022-04-24 21:10] LABS: Hepatitis B Virus DNA <10 NOT DETECTED IU/mL (NOT DETECTED); Hepatitis B Virus DNA PCR <1.00 NOT DETECTED Log IU/mL (NOT DETECTED)
[2022-04-25 03:29] LABS: Hepatitis B Envelope Antigen NON-REACTIVE (NON-REACTIVE)
== END 2022-04-23 06:29 | disposition home or self-care (01) ==
PROVIDERS: PCP Family Medicine; Visit Provider Internal Medicine Gastroenterology
DX: B18.1 Chronic viral hepatitis B without delta-agent (principal)
CPT/HCPCS: 36415; 76705; 80053; 82105; 85025; 86707; 87340; 87350; 87517

== ENCOUNTER 2022-11-19 11:44 | Outpatient (CLI) | payer MEDICARE, BC, SELFPAY ==
--- NOTE | 2022-11-19 11:48 | CT_ITS ---
WS: [id number] CT ABDOMEN AND PELVIS WITH CONTRAST HISTORY: CHRONIC HEPATITS B VIRUS INFECTION/ABD PAIN/FEVER/POST OP TECHNIQUE: Imaging performed of the abdomen and pelvis with IV contrast. Single phase imaging of the abdomen. Coronal and sagittal reformats are submitted. All CT scans at [facility] use at [address] one of these dose optimization techniques: automated exposure control; mA and/or kV adjustment per patient size (includes targeted exams where dose is matched to clinical indication); or iterative re construction. IV CONTRAST: Omnipaque 350; 100 mL IV. Oral contrast: Yes. DLP: 801.91 mGy.cm COMPARISON: 03/10/2017, 07/06/2014 Lower thorax: Lungs are clear. Mild elevation of the LEFT diaphragm. Heart is normal size. No hiatal hernia. Liver/biliary system: Normal size with no intrahepatic dilatation. Gallbladder: Prior cholecystectomy. Pancreas: Normal size pancreas and pancreatic duct. No adjacent inflammation. Spleen: Normal size spleen. No mass or infarct. Adrenal glands: Normal. Right kidney: Normal kidney. No obstruction. Left kidney: Normal size kidney. Too small to characterize cortical hypodensities. No obstruction. Aorta: Normal size aorta. There is infiltrating soft tissue inflammatory changes surrounding the aort a. Throughout the retroperitoneum there is stranding and hazy attenuation throughout the retroperiton eal fat. This is encasing the aorta and the IVC and the distal ureters. Hazy attenuation continues al kumar the iliac arteries and into the pelvis. Presacral soft tissue thickening and mild inflammation. T here is mild soft tissue thickening along the paracolic gutters. Lymphadenopathy: There are several lymph nodes within retroperitoneal soft tissue inflammation. Large st lymph node measures 1.7 cm. Free fluid: Small amount of free fluid in the pelvis. GI tract: No GI tract obstruction. Diffuse constipation and retained fecal material. Prior appendecto my Abdominal wall: Unremarkable abdominal wall. No hernia. Pelvis: Penile implant. Carrizozo in the RIGHT lower quadrant. There is an additional fluid collectio n centered within the RIGHT pectineus muscle. This fluid collection has been present on prior studies but increasing in size. This is a cystic-appearing mass with a few thin septations. Mass measures 11 .4 x 10.9 cm. There is mass effect upon the adjacent soft tissue structures. Displacement of the femo ral artery and vein laterally. Bones: L5 anterolisthesis by 10 mm. Bilateral pars defects. IMPRESSION: 1. Diffuse hazy attenuation throughout the retroperitoneum encasing the aorta, iliac arteries and IV C. There is soft tissue inflammation with a few enlarged lymph nodes. There is also mild thickening a nd a small amount of fluid extending along the paracolic gutters and into the pelvis. Etiology of thi s is uncertain. This may be developing early retroperitoneal fibrosis. The ureters are partially enca sed but not obstructed. Neoplasm such as lymphoma should be considered. Infection also within the dif ferential. 2. Prior cholecystectomy and appendectomy. 3. 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 Mass is displacing the adjacent vascular and soft tissue structures. This mass has been present since at least 2014 wit h slow increase in size.
[2022-11-19] MEDS: iohexol 350 mg/mL 500 mL Btl (per mL) IV (12:11)
[2022-11-19] MEDS: barium sulfate 450 mL Oral Susp PO (12:12)
== END 2022-11-19 11:45 | disposition home or self-care (01) ==
PROVIDERS: PCP Family Medicine; Visit Provider Internal Medicine Gastroenterology
DX: B18.1 Chronic viral hepatitis B without delta-agent (principal); R10.9 Unspecified abdominal pain; R50.9 Fever, unspecified; Z98.890 Other specified postprocedural states; Z90.49 Acquired absence of other specified parts of digestive tract
CPT/HCPCS: 36415; 74177; 80053; 82105; 85025; 86707; 87340; 87350; 87517; Q9967

== ENCOUNTER 2022-11-19 12:52 | Outpatient (CLI) | payer MEDICARE, BC, SELFPAY ==
[2022-11-19 14:15] LABS: Basophils % 0.1 %; Hematocrit 38.2 % (37-53); Lymphocytes # 1.9 10^3/uL (0.8-4.8); Mean Corpuscular HGB Conc 33.2 g/dL (30-55); Mean Corpuscular Hemoglobin 31.8 pg (27-33); Mean Corpuscular Volume 95.5 fl (82-101); Monocytes # 0.9 10^3/uL (0.2-0.9); Monocytes % 4.1 %; Neutrophils # 17.78 10^3/uL (1.8-7.7); Neutrophils % 86.2 %; Nucleated Red Blood Cells % 0 %; Platelet Count 175 10^3/cmm (157-399); Red Cell Distribution Width 13.2 % (12.1-15.1); White Blood Count 20.63 10^3/uL (3.29-11.43)
[2022-11-19 14:42] LABS: Tumor Marker Alpha Fetoprotein 1.8 ng/mL (0-8.3)
[2022-11-19 14:53] LABS: Alanine Aminotransferase 16 U/L (0-41); Albumin Level 3.7 g/dL (3.5-5.2); Alkaline Phosphatase 99 U/L (40-130); Anion Gap 13.7 (5-19); Aspartate Amino Transferase 22 U/L (0-40); Blood Urea Nitrogen 18 mg/dL (8-23); Calcium 8.5 mg/dL (8.5-10.5); Carbon Dioxide 25 mmol/L (22-29); Chloride 102 mmol/L (98-107); Globulin 3.9 g/dL (1.3-4.6); Glucose 115 mg/dL (65-115); Osmolality Calculated 287 mOsm/kg (285-295); Potassium 3.7 mmol/L (3.5-5.1); Sodium 137 mmol/L (136-145); Total Bilirubin 0.4 mg/dL (0.15-1.2); Total Protein 7.6 g/dL (6.6-8.7)
[2022-11-19 15:15] LABS: Hepatitis B Surface Antigen Reactive (Nonreactive)
[2022-11-20 09:34] LABS: Hepatitis B Surface AG REACTIVE (NON-REACTIVE)
[2022-11-20 10:39] LABS: Hepatitis B Envelope Antigen NON-REACTIVE (NON-REACTIVE)
[2022-11-20 15:04] LABS: Hepatitis B Virus DNA NOT DETECTED (NOT DETECTED); Hepatitis B Virus DNA PCR NOT DETECTED Log IU/mL (NOT DETECTED)
== END 2022-11-19 12:53 | disposition home or self-care (01) ==
LOC: LAB 12:56
PROVIDERS: PCP Family Medicine; Visit Provider Internal Medicine Gastroenterology
DX: B18.1 Chronic viral hepatitis B without delta-agent (principal)
CPT/HCPCS: 36415; 80053; 82105; 85025; 86707; 87340; 87350; 87517

== ENCOUNTER → 2022-12-01 08:37 | Outpatient (BNVA) | payer MEDICARE, BC, SELFPAY | PROVIDERS: PCP Family Medicine; Visit Provider Nurse Practitioner Family | DX: D22.5 Melanocytic nevi of trunk (principal); L57.0 Actinic keratosis; L57.8 Other skin changes due to chronic exposure to nonionizing radiation; L82.1 Other seborrheic keratosis | CPT/HCPCS: 17004; 99213 ==

== ENCOUNTER 2022-12-02 13:51 | Outpatient (CLI) | payer MEDICARE, BC, SELFPAY ==
[2022-12-02 14:14] LABS: Basophils % 0.4 %; Eosinophils # 0.1 10^3/uL (0.0-0.8); Eosinophils % 0.5 %; Hematocrit 40.6 % (37-53); Lymphocytes # 2.3 10^3/uL (0.8-4.8); Lymphocytes % 22.4 %; Mean Corpuscular HGB Conc 33.7 g/dL (30-55); Mean Corpuscular Hemoglobin 32.5 pg (27-33); Mean Corpuscular Volume 96.4 fl (82-101); Mean Platelet Volume 8.8 fL (7.4-10.4); Monocytes # 1.4 10^3/uL (0.2-0.9); Monocytes % 13.9 %; Neutrophils # 6.44 10^3/uL (1.8-7.7); Neutrophils % 62.5 %; Nucleated Red Blood Cells % 0 %; Platelet Count 174 10^3/cmm (157-399); Red Blood Count 4.21 10^6/uL (3.85-5.65); Red Cell Distribution Width 13.2 % (12.1-15.1)
[2022-12-02 14:25] LABS: INR 1.04 (0.8-1.2)
[2022-12-02 14:35] LABS: Alanine Aminotransferase 17 U/L (0-41); Albumin Level 3.7 g/dL (3.5-5.2); Alkaline Phosphatase 93 U/L (40-130); Anion Gap 11.4 (5-19); Aspartate Amino Transferase 24 U/L (0-40); Blood Urea Nitrogen 18 mg/dL (8-23); Calcium 8.8 mg/dL (8.5-10.5); Carbon Dioxide 29 mmol/L (22-29); Chloride 105 mmol/L (98-107); Globulin 4.2 g/dL (1.3-4.6); Glucose 102 mg/dL (65-115); Osmolality Calculated 294 mOsm/kg (285-295); Potassium 4.4 mmol/L (3.5-5.1); Sodium 141 mmol/L (136-145); Total Bilirubin 0.5 mg/dL (0.15-1.2); Total Protein 7.9 g/dL (6.6-8.7)
== END 2022-12-02 13:52 | disposition home or self-care (01) ==
LOC: LAB 13:59
PROVIDERS: PCP Family Medicine; Visit Provider Internal Medicine Gastroenterology
DX: Z01.89 Encounter for other specified special examinations (principal)
CPT/HCPCS: 36415; 80053; 85025; 85610

== ENCOUNTER → 2022-12-08 08:26 | Outpatient (BNVA) | payer MEDICARE, BC, SELFPAY | PROVIDERS: PCP Family Medicine; Visit Provider Podiatrist Foot & Ankle Surgery | DX: B35.1 Tinea unguium (principal); L97.512 Non-pressure chronic ulcer of other part of right foot with fat layer exposed; I73.9 Peripheral vascular disease, unspecified; G62.9 Polyneuropathy, unspecified | CPT/HCPCS: 11042; 11721; 99203 ==

== ENCOUNTER → 2022-12-21 07:47 | Outpatient (BNVA) | payer MEDICARE, BC, SELFPAY | PROVIDERS: PCP Family Medicine; Visit Provider Podiatrist Foot & Ankle Surgery | DX: Z51.89 Encounter for other specified aftercare (principal); B35.1 Tinea unguium; L97.512 Non-pressure chronic ulcer of other part of right foot with fat layer exposed; I73.9 Peripheral vascular disease, unspecified; G62.9 Polyneuropathy, unspecified | CPT/HCPCS: 99213 ==

== ENCOUNTER → 2023-02-08 08:07 | Outpatient (BNVA) | payer MEDICARE, BC, SELFPAY | PROVIDERS: PCP Family Medicine; Visit Provider Podiatrist Foot & Ankle Surgery | DX: Z51.89 Encounter for other specified aftercare (principal); B35.1 Tinea unguium; I73.9 Peripheral vascular disease, unspecified; G62.9 Polyneuropathy, unspecified; L97.512 Non-pressure chronic ulcer of other part of right foot with fat layer exposed; L84 Corns and callosities | CPT/HCPCS: 11056; 11721; 99213 ==

== ENCOUNTER → 2023-02-23 07:51 | Outpatient (BNVA) | payer MEDICARE, BC, SELFPAY | PROVIDERS: PCP Family Medicine; Visit Provider Podiatrist Foot & Ankle Surgery | DX: L60.8 Other nail disorders (principal); Z51.89 Encounter for other specified aftercare; B35.1 Tinea unguium; I73.9 Peripheral vascular disease, unspecified; G62.9 Polyneuropathy, unspecified; L97.512 Non-pressure chronic ulcer of other part of right foot with fat layer exposed | CPT/HCPCS: 99213 ==

== ENCOUNTER 2023-03-01 07:43 | Outpatient (CLI) | payer MEDICARE, BC, SELFPAY ==
--- NOTE | 2023-03-01 07:47 | CT_ITS ---
WS: [id number] CT ABDOMEN PELVIS TECHNIQUE: Noncontrast CT of the abdomen and contrast-enhanced CT of the abdomen and pelvis with yael nal and sagittal reformatted images. CLINICAL INFORMATION: RETROPERITONEAL FIBROSIS COMPARISON: None. DLP: 2616.[address] scans at [facility] use at least one of these dose optimization techniques: automated e xposure control; mA and/or kV adjustment per patient size (includes targeted exams where dose is matc hed to clinical indication); or iterative reconstruction. FINDINGS: Again seen is the diffuse hazy soft tissue attenuation throughout the retroperitoneum encasing the ao rta and iliac arteries and IVC. Similar-appearing enlarged lymph nodes. Soft tissue induration and fl uid extends into the pericolic gutters bilaterally and into the pelvis similar in appearance. Differe nt differential considerations are unchanged including retroperitoneal fibrosis and lymphoma. Stable well-circumscribed cystic lesion in the RIGHT anterior adductor musculature. This is present d ating back to 2014 with slowly increasing size. Penile implant prosthesis with reservoir in the RIGHT lower quadrant. Prior cholecystectomy and appendectomy. Grade 1 anterolisthesis L5 on S1 with bilate ral spondylolysis is unchanged. Disc space narrowing L5-S1. Lung bases are well aerated. Noncalcified nodule in the RIGHT middle lobe measuring 3 mm. Mild diffus e fatty infiltration of the liver. Normal portal vein and splenic vein. Normal pancreatic parenchymal enhancement. Normal spleen. Normal GE junction. Sigmoid constipation. Sigmoid diverticulosis. Celiac and SMA are patent. Normal caliber abdominal aorta. Sebaceous cyst in the lower back soft tiss ues. Mild prostate enlargement measuring 5.7 cm IMPRESSION: 1. Overall no significant changes in the soft tissue inflammatory process in the retroperitoneum inv olving the aorta IVC and proximal iliac arteries. A few enlarged lymph nodes the largest measuring 1. 7 cm are stable. 2. Prior cholecystectomy. 3. Normal ureteral excretion on the delayed images. No hydronephrosis. 4. Stable septated cystic lesion in the RIGHT adductor upper thigh and groin musculature. 5. No other significant changes compared to previous.
[2023-03-01] MEDS: iohexol 350 mg/mL 500 mL Btl (per mL) IV (08:27)
[2023-03-01 09:09] LABS: Blood Urea Nitrogen 18 mg/dL (8-23)
== END 2023-03-01 07:44 | disposition home or self-care (01) ==
LOC: RAD 07:43
PROVIDERS: PCP Family Medicine; Visit Provider Urology
DX: K68.2 Retroperitoneal fibrosis (principal); Z90.49 Acquired absence of other specified parts of digestive tract
CPT/HCPCS: 74178; 82565; 84520; Q9967

== ENCOUNTER → 2023-04-12 13:06 | Outpatient (BNVA) | payer MEDICARE, BC, SELFPAY | PROVIDERS: PCP Family Medicine; Visit Provider Nurse Practitioner Family | DX: L57.8 Other skin changes due to chronic exposure to nonionizing radiation (principal); L81.4 Other melanin hyperpigmentation; L91.8 Other hypertrophic disorders of the skin; L82.1 Other seborrheic keratosis; Z85.828 Personal history of other malignant neoplasm of skin; L82.0 Inflamed seborrheic keratosis; D48.5 Neoplasm of uncertain behavior of skin | CPT/HCPCS: 11102; 17110; 99213 ==

== ENCOUNTER → 2023-05-10 07:53 | Outpatient (BNVA) | payer MEDICARE, BC, SELFPAY | PROVIDERS: PCP Family Medicine; Visit Provider Podiatrist Foot & Ankle Surgery | DX: B35.1 Tinea unguium (principal); I73.9 Peripheral vascular disease, unspecified; G62.9 Polyneuropathy, unspecified; L97.512 Non-pressure chronic ulcer of other part of right foot with fat layer exposed; L84 Corns and callosities | CPT/HCPCS: 11055; 11721 ==

== ENCOUNTER 2023-06-16 23:54 | Inpatient (IN) | payer MEDICARE, BC, SELFPAY ==
[2023-06-16 23:55] VITALS: BP 145/74; PULSE 75; RESP 16; TEMP 36.6; O2SAT 95
[2023-06-17] VITALS (36 sets, daily range): BP systolic 96–140; BP diastolic 48–92; PULSE 50–92; RESP 16–20; TEMP 36.6–37.2; O2SAT 92–98; BMI 30.5
--- NOTE | 2023-06-17 00:09 | XRR_ITS ---
PROCEDURE INFORMATION: Exam: XR Right Hip Exam date and time: 06/17/2023 12:22 AM Age: 72 years old Clinical indication: Injury or trauma; Fall; Other: Pain; Additional info: Fall hip pain TECHNIQUE: Imaging protocol: Radiologic exam of the right hip. Views: 1 view hip with pelvis when performed. COMPARISON: CT abdomen pelvis wo/w [id number] 03/01/2023 8:22 AM FINDINGS: Bones/joints: Subcapital impacted hip fracture may be present, further evaluation with CT advised. Moderate right hip osteoarthritis. Soft tissues: Unremarkable. XR/XR hip RT 2-3V wo/w pel* [id number] IMPRESSION: 1. Subcapital impacted hip fracture may be present, further evaluation with CT advised. 2. Moderate right hip osteoarthritis.
--- NOTE | 2023-06-17 00:14 | ED_ITS ---
HPI - Fall 2 General: Chief Complaint: ER Hold Stated Complaint: Fall Right side arm, hip, leg Time Seen by Provider: 06/17/23 00:07 History of Present Illness: Patient comes to the ER by EMS after falling and landing on his right hip. Patient was taking off his pants when he lost his balance and his feet got tangled and he fell to the ground. Patient reports pain and difficulty straightening out his right leg. Patient had no right hip problems before the fall. The patient did not lose consciousness or hit his head. Patient denies any history of chest pain. Review of Systems 2 General: Reports: 10 or more systems reviewed and unremarkable except in HPI and below PFSH ED 2 PFSH: Medical History History of nonmelanoma skin cancer Tubular adenoma of colon History of colon polyps History of hemorrhoids Surgical History History of colonoscopy Status post deep brain stimulator placement History of laparoscopic appendectomy History of laparoscopic cholecystectomy History of rhinoplasty History of tonsillectomy and adenoidectomy Social History Smoking and tobacco/nicotine status: former use of tobacco/nicotine Physical Exam 2 Const: COMMON NORMALS: no acute distress, average body habitus, patient oriented x3, no limitations, healthy appearing, alert and well nourished HENMT: COMMON NORMALS: normocephalic, atraumatic, hearing grossly normal bilaterally, external ears normal, Normal external nose present, moist oral mucous membranes and oropharynx normal HEAD & SCALP: normocephalic and atraumatic NOSE: Normal external nose present EXTERNAL EAR: Yes external ears normal Neck/C-Spine: COMMON NORMALS: no JVD Chest: COMMONS NORMALS: normal inspection of the chest and normal palpation of entire chest wall Resp: COMMON NORMALS: normal respiratory effort, No retractions, No use of accessory muscles and clear to auscultation bilaterally AUSCULTATION: clear to auscultation bilaterally Cardio: COMMON NORMALS: no JVD, regular rate, regular rhythm, S1 normal heart sound present, S2 normal heart sound present, No gallops present (Cardio), No clicks present (Cardio), No murmurs present (Cardio) and No rub (Cardio) R ATE: regular rate RHYTHM: regular rhythm HEART SOUNDS: S1 normal heart sound present and S2 normal heart sound present GI: COMMON NORMALS: Normal to inspection, nondistended, normoactive bowel sounds present, Soft to palpation, non-tender, No hepatosplenomegaly present and no masses PALPATION: Yes Soft to palpation and Yes No hepatosplenomegaly present Extremity: NARRATIVE EXTREMITY EXAM: Tenderness with palpation over right hip region. Neuro: COMMON NORMALS: patient oriented x3 SENSORIUM/ORIENTATION: Yes alert Course 2 Vital Signs: Vital signs: Vital Signs Temperature 97.9 F 06/16/23 23:55 Pulse Rate 71 06/17/23 04:37 Respiratory Rate 18 06/17/23 04:37 Blood Pressure 109/62 06/17/23 04:37 Pulse Oximetry 92 06/17/23 04:37 Oxygen Delivery Me thod Room Air 06/17/23 04:03 MDM - Fall Medical Decision Making Patient has a stimulator and we get the best EKG we could get with a very fuzzy baseline I disagree with the interpretation from the computer that said acute FL especially patient not having any chest pain at all. Discussed the case with Dr. Samuel who said she will try to operate on his hip this afternoon. Discussed case with Dr. Mendez who agreed to place patient inpatient for further evaluation and treatment. Lab Data 06/17/23 00:20 06/17/23 00:20 Radiology Impressions Hip/Pelvis X-Ray 06/17/23 00:09 IMPRESSION: 1. Subcapital impacted hip fracture may be present, further evaluation with CT advised. 2. Moderate right hip osteoarthritis. Chest X-Ray 06/17/23 00:36 IMPRESSION: 1. Negative for infiltrate 2. Bilateral vagal stimulators. 3. Mild cardiomegaly. 4. Emphysematous changes. Hip CT 06/17/23 01:18 IMPRESSION: 1. Acute subcapital right femoral neck fracture with mild impaction. 2. No significant change in cystic mass in the right thigh anterior musculature, measuring about 12 cm. Unclear etiology. Laboratory Results WBC 9.73 10^3/uL (3.29-11.43) 06/17/23 00:20 RBC 4.29 10^6/uL (3.85-5.65) 06/17/23 00:20 Hgb 13.50 g/dL (11.27-16.99) 06/17/23 00:20 Hct 40.6 % (37-53) 06/17/23 00:20 MCV 94.6 fl (82-101) 06/17/23 00:20 MCH 31.5 pg (27-33) 06/17/23 00:20 MCHC 33.3 g/dL (30-55) 06/17/23 00:20 RDW 12.7 % (12.1-15.1) 06/17/23 00:20 Plt Count 150 10^3/cmm (157-399) L 06/17/23 00:20 MPV 9.2 fL (7.4-10.4) 06/17/23 00:20 Neut % (Auto) 59.4 % 06/17/23 00:20 Lymph % (Auto) 24.5 % 06/17/23 00:20 Jasper % (Auto) 14.6 % 06/17/23 00:20 Eos % (Auto) 0.6 % 06/17/23 00:20 Baso % (Auto) 0.3 % 06/17/23 00:20 Neut # (Auto) 5.78 10^3/uL (1.8-7.7) 06/17/23 00:20 Lymph # (Auto) 2.4 10^3/uL (0.8-4.8) 06/17/23 00:20 Jasper # (Auto) 1.4 10^3/uL (0.2-0.9) H 06/17/23 00:20 Eos # (Auto) 0.1 10^3/uL (0.0-0.8) 06/17/23 00:20 Baso # (Auto) 0.0 10^3/uL (0.0-0.1) 06/17/23 00:20 Nucleated RBC % (auto) 0 % 06/17/23 00:20 Nucleated RBCs # 0.0 /100WBC 06/17/23 00:20 PT 13.90 SECONDS (12.1-14.9) 06/17/23 00:20 INR 1.03 (0.8-1.2) 06/17/23 00:20 Sodium 141 mmol/L (136-145) 06/17/23 00:20 Potassium 4.2 mmol/L (3.5-5.1) 06/17/23 00:20 Chloride 106 mmol/L (98-107) 06/17/23 00:20 Carbon Dioxide 29 mmol/L (22-29) 06/17/23 00:20 Anion Gap 10.2 (5-19) 06/17/23 00:20 BUN 18 mg/dL (8-23) 06/17/23 00:20 Creatinine 0.9 mg/dL (0.7-1.2) 06/17/23 00:20 GFR Calculation Not Reportable 06/17/23 00:20 Glucose 93 mg/dL (65-115) 06/17/23 00:20 Calculated Osmolality 294 mOsm/kg (285-295) 06/17/23 00:20 Calcium 8.8 mg/dL (8.5-10.5) 06/17/23 00:20 Total Bilirubin 0.3 mg/dL (0.15-1.2) 06/17/23 00:20 AST 29 U/L (0-40) 06/17/23 00:20 ALT 19 U/L (0-41) 06/17/23 00:20 Alkaline Phosphatase 114 U/L (40-130) 06/17/23 00:20 Total Protein 8.3 g/dL (6.6-8.7) 06/17/23 00:20 Albumin 3.8 g/dL (3.5-5.2) 06/17/23 00:20 Globulin 4.5 g/dL (1.3-4.6) 06/17/23 00:20 Blood Type O Positive 06/17/23 01:03 Rho(D) Type Rh positive 06/17/23 01:03 Antibody Screen Negative 06/17/23 01:03 All radiology interpretation(s) finalized by discharge Discharge Plan Discharge Patient Disposition: Admitted As Inpatient Admit Provider: Luis Enrique Mendez Clinical Impression: Closed fracture of right hip Qualifiers: Encounter type: initial encounter Qualified Code(s): S72.001A - Fracture of unspecified part of neck of right femur, initial encounter for closed fracture Fall Qualifiers: Encounter type: initial encounter Qualified Code(s): W19.XXXA - Unspecified fall, initial encounter Condition: Stable Coding Level of Care Code ED Information Technology Program Manager for [employer]
[2023-06-17] MEDS: morphine 4 mg/mL SDV 1 mL IVP ×3 (00:19→05:43)
[2023-06-17] MEDS: ondansetron 2 mg/ML SDV 2 mL 4 MG IVP (00:19)
--- NOTE | 2023-06-17 00:36 | XRR_ITS ---
PROCEDURE INFORMATION: Exam: XR Chest Exam date and time: 06/17/2023 12:47 AM Age: 72 years old Clinical indication: Injury or trauma; Fall; Other: Pain; Prior surgery; Surgery date: 6+ months; Surgery type: Pacer TECHNIQUE: Imaging protocol: Radiologic exam of the chest. Views: 1 view. COMPARISON: CR XR ribs LT mn 3V w CXR1V [id number] 04/24/2020 10:04 AM FINDINGS: Tubes, catheters and devices: Bilateral vagal stimulators. Lungs: Emphysematous changes. Pleural spaces: Unremarkable. No pleural effusion. No pneumothorax. Heart/Mediastinum: Mild cardiomegaly. Bones/joints: Unremarkable. XR/XR chest 1V portable [id number] IMPRESSION: 1. Negative for infiltrate 2. Bilateral vagal stimulators. 3. Mild cardiomegaly. 4. Emphysematous changes.
[2023-06-17 00:42] LABS: Basophils % 0.3 %; Eosinophils # 0.1 10^3/uL (0.0-0.8); Eosinophils % 0.6 %; Hematocrit 40.6 % (37-53); Lymphocytes # 2.4 10^3/uL (0.8-4.8); Lymphocytes % 24.5 %; Mean Corpuscular HGB Conc 33.3 g/dL (30-55); Mean Corpuscular Hemoglobin 31.5 pg (27-33); Mean Corpuscular Volume 94.6 fl (82-101); Mean Platelet Volume 9.2 fL (7.4-10.4); Monocytes # 1.4 10^3/uL (0.2-0.9); Monocytes % 14.6 %; Neutrophils # 5.78 10^3/uL (1.8-7.7); Neutrophils % 59.4 %; Nucleated Red Blood Cells % 0 %; Platelet Count 150 10^3/cmm (157-399); Red Blood Count 4.29 10^6/uL (3.85-5.65); Red Cell Distribution Width 12.7 % (12.1-15.1); White Blood Count 9.73 10^3/uL (3.29-11.43)
[2023-06-17 00:53] LABS: INR 1.03 (0.8-1.2)
--- NOTE | 2023-06-17 00:59 | ECG_ITS ---
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 Measurements Intervals Strang Rate: 58 P: 139 NJ: 366 QRS: 116 QRSD: 72 T: 69 QT: 400 QTc: 395 Interpretive Statements The EKG is uninterpretable due to baseline artifact No previous ECG available for comparison Electronically Signed On 06-17-2023 15:08:44 CDT by Johnnie Cross M.D. [id number]
[2023-06-17 01:03] LABS: Alanine Aminotransferase 19 U/L (0-41); Albumin Level 3.8 g/dL (3.5-5.2); Alkaline Phosphatase 114 U/L (40-130); Anion Gap 10.2 (5-19); Aspartate Amino Transferase 29 U/L (0-40); Blood Urea Nitrogen 18 mg/dL (8-23); Calcium 8.8 mg/dL (8.5-10.5); Carbon Dioxide 29 mmol/L (22-29); Chloride 106 mmol/L (98-107); Creatinine Clr Calc Pharmacy 80.4076; Globulin 4.5 g/dL (1.3-4.6); Glucose 93 mg/dL (65-115); Osmolality Calculated 294 mOsm/kg (285-295); Potassium 4.2 mmol/L (3.5-5.1); Sodium 141 mmol/L (136-145); Total Bilirubin 0.3 mg/dL (0.15-1.2); Total Protein 8.3 g/dL (6.6-8.7)
--- NOTE | 2023-06-17 01:18 | CTR_ITS ---
PROCEDURE INFORMATION: Exam: CT Right Lower Extremity Without Contrast, Hip Exam date and time: 06/17/2023 1:33 AM Age: 72 years old Clinical indication: Injury or trauma; Fall; Other: Pain; Additional info: Abnormal XR, pain post fall TECHNIQUE: Imaging protocol: CT of the right lower extremity without contrast was performed. Exam focused on the hip. Radiation optimization: All CT scans at this facility use at least one of these dose optimization techniques: automated exposure control; mA and/or kV adjustment per patient size (includes targeted exams where dose is matched to clinical indication); or iterative reconstruction. COMPARISON: 1. CR (PELVIS, ) 06/17/2023 12:[address] abdomen pelvis wo/w [id number] 03/01/2023 8:[address] abdomen pelvis w con* [id number] 11/19/2022 1:16 PM RADIATION DOSE METRICS: Total DLP (mGy-cm): 659.9 FINDINGS: Bones/joints: Acute subcapital right femoral neck fracture with mild impaction. No other fracture identified. No dislocation. Soft tissues: No significant change in cystic mass in the right thigh anterior musculature, measuring about 12 cm. Penile implant partially imaged. CT/CT hip RT wo con* [id number] IMPRESSION: 1. Acute subcapital right femoral neck fracture with mild impaction. 2. No significant change in cystic mass in the right thigh anterior musculature, measuring about 12 cm. Unclear etiology.
--- NOTE | 2023-06-17 06:22 | P.HP_ITS ---
Providers/Chief Complaint 2 Admitting Physician: Luis Enrique Mendez MD Primary Care Provider: Miladis Farias MD Chief Complaint: Fall Right side arm, hip, leg History of Present Illness Víctor Light is a 72 year old male presenting today after sustaining a fall. Patient has been diagnosed with right subcapital femoral neck fracture in the ER, patient is stating that he did not experience any syncope, nausea, vomiting or stroke related symptoms. He was just not able to balance himself when he was changing his clothes, his foot got stuck in his jeans that attributed to a fall. He consider himself fairly active for his age, he does have deep brain stimulator for his tremors, he carries history of skin cancer. He lives with his . Review of Systems 2 Const: Denies: fever(s) Eyes: Denies: change in vision ENMT: Denies: throat pain Card: Denies: chest pain Resp: Denies: dyspnea GI: Denies: abdominal pain : Denies: flank pain Musc: Reports: back pain and extremity pain; Denies: neck pain Skin/Breast: Reports: rash Medications/Allergies Home Medications Medication Instructions Recorded Confirmed Last Taken Type ascorbic acid (vitamin C) 1,000 mg 1,000 mg PO Q12H 04/24/20 05/10/23 03/09/22 History tablet (Vitamin C) docusate sodium 100 mg capsule 100 mg PO TID 04/24/20 05/10/23 03/10/22 History (Colace) flaxseed oil 1,000 mg capsule 1,000 mg PO DAILY 04/24/20 05/10/23 03/09/22 History hydrocodone 5 mg-acetaminophen 325 1 tab PO Q6H PRN pain #14 tabs 04/24/20 05/10/23 Unknown Rx mg tablet multivitamin 1 tab PO BID 04/24/20 05/10/23 03/09/22 History omega 5-jor-nvz-fish oil 1,000 mg 1 cap PO DAILY 04/24/20 05/10/23 03/09/22 History (120 mg-180 mg) capsule (Fish Oil) propranolol 40 mg tablet 40 mg PO TID 04/24/20 05/10/23 03/11/22 History saw palmetto 1 cap PO BID 04/24/20 05/10/23 03/09/22 History sennosides 25 mg tablet 25 mg PO QPM 04/24/20 05/10/23 03/09/22 History tenofovir disoproxil fumarate 300 300 mg PO DAILY 04/24/20 05/10/23 03/11/22 History mg tablet tolterodine 2 mg tablet 2 mg PO BID 04/24/20 05/10/23 03/09/22 History fiber 2.6 cap PO QID 03/09/22 05/10/23 03/09/22 History lactobacillus comb no.10 20 20,000 mmu cells PO BID 03/09/22 05/10/23 03/09/22 History billion cell capsule (Probiotic) Allergies Allergy/AdvReac Type Severity Reaction Status Date / Time adhesive Allergy Unknown Verified 06/16/23 23:59 adhesive tape Allergy Unknown Verified 06/16/23 23:59 butorphanol [From Stadol] Allergy ADR/ALGY-Hy Verified 06/16/23 23:59 potension Iodinated Contrast Media Allergy ALGY-Bliste Verified 06/16/23 23:59 r PFSH Acute 2 PFSH: Medical History History of nonmelanoma skin cancer Tubular adenoma of colon History of colon polyps History of hemorrhoids Surgical History History of colonoscopy Status post deep brain stimulator placement History of laparoscopic appendectomy History of laparoscopic cholecystectomy History of rhinoplasty History of tonsillectomy and adenoidectomy Social History Smoking and tobacco/nicotine status: former use of tobacco/nicotine Vitals/I&O/Wt Last Vital Signs Temp 97.9 F 06/16/23 23:55 Pulse 73 06/17/23 06:07 Resp 18 06/17/23 06:07 BP 103/48 06/17/23 06:07 Pulse Ox 93 06/17/23 06:07 O2 Del Method Room Air 06/17/23 06:07 Weight last 48 hrs Weight 86.183 kg Physical Exam 2 Narrative: Patient is awake and alert Dehydrated Pleasant cooperative No active chest pain S1, S2 Abdomen soft No active wheezing Currently doing well on room air Nonfocal neuroexam Abdomen soft Data 06/17/23 00:20 06/17/23 00:20 A&P Assessment and plan (1) Closed fracture of right hip: Qualifiers: Encounter type: initial encounter Qualified Code(s): S72.001A - Fracture of unspecified part of neck of right femur, initial encounter for closed fracture (2) Fall: Qualifiers: Encounter type: initial encounter Qualified Code(s): W19.XXXA - Unspecified fall, initial encounter Plan Hip fracture after sustaining a mechanical fall No signs of stroke No active chest pain Patient fairly active for his age Continue urgent nature of intervention I would not request preoperative cardiac workup at this point Patient does not have any history of cardiac disease CHF or MO. He does have deep brain stimulator for his essential tremors History of skin cancer No acute flare at this point Will keep him n.p.o. Keep pain under control with opioids add bowel regimen to avoid opioid-induced constipation Dr. Wright consulted by the ER physician Full code DVT prophylaxis: SCDs CBC: BMP unremarkable, EKG cells interpretation: No active signs of ischemia or infarction however it has to have artifact of deep brain stimulator placed Review of records: Previous colonoscopy was done in [address] Zurita polypectomy was done Attestations 2 Medical Necessity Statement*: More than 2 midnights anticipated Diagnoses Closed fracture of right hip S72.001A Encounter type: initial encounter Fall W19.XXXA Encounter type: initial encounter
[2023-06-17] MEDS: sodium chloride 0.9% 1,000 ML 75 ML IV (07:33)
[2023-06-17 07:44] LABS: Vitamin B12 839 pg/mL (232-1245)
[2023-06-17] MEDS: HYDROmorphone 1 mg/mL INJ 1 mL 0.200000000000000011 MG IVP (10:30)
--- NOTE | 2023-06-17 13:17 | P.ANESASSM_ITS ---
Pre-Anesthetic Assessment Height/Weight: Height 1.73 m Weight 91.081 kg Temp Pulse Resp BP Pulse Ox O2 Del Method 99.0 F 63 18 97/54 96 Room Air 06/17/23 12:56 06/17/23 12:56 06/17/23 12:56 06/17/23 12:56 06/17/23 12:56 06/17/23 12:56 Operation Date: 06/17/23 14:10 Proposed Procedures p Hip Screw vs Bipolar(Right) - Elvira Wright MD Familial anesthetic complications: none Was Beta Josse taken within 24 hours: Yes Was Clonidine taken within 24 hours: N/A Last intake: Intake Last Liquid Date 06/16/23 Last Liquid Time 22:00 Last Solid Date 06/16/23 Last Solid Time 21:00 Social No alcohol and No tobacco Exam alert, oriented x 3, clear to auscultation bilaterally and regular rate & rhythm Airway Mallampati: Class I Dentition: other (no teeth) Neuropsych DBS for tremor Anesthetic Plan ASA status: 2 Anesthesia: General Risk of > 500 ml blood loss (7ml/kg in children): No Medications/Allergies Home Medications Medication Instructions Recorded Confirmed Last Taken Type ascorbic acid (vitamin C) 1,000 mg 1,000 mg PO Q12H 04/24/20 06/17/23 06/16/23 History tablet (Vitamin C) docusate sodium 100 mg capsule 100 mg PO TID 04/24/20 06/17/23 06/16/23 History (Colace) flaxseed oil 1,000 mg capsule 1,000 mg PO DAILY 04/24/20 06/17/23 06/16/23 History multivitamin 1 tab PO BID 04/24/20 06/17/23 06/16/23 History omega 4-ldv-yga-fish oil 1,000 mg 1 cap PO DAILY 04/24/20 06/17/23 06/16/23 History (120 mg-180 mg) capsule (Fish Oil) propranolol 40 mg tablet 40 mg PO TID 04/24/20 06/17/23 06/16/23 History sennosides 25 mg tablet 25 mg PO QPM 04/24/20 06/17/23 06/16/23 History tenofovir disoproxil fumarate 300 300 mg PO DAILY 04/24/20 06/17/23 06/16/23 History mg tablet tolterodine 2 mg tablet 2 mg PO BID 04/24/20 06/17/23 06/16/23 History lactobacillus comb no.10 20 20,000 mmu cells PO BID 03/09/22 06/17/23 06/16/23 History billion cell capsule (Probiotic) calcium polycarbophil 625 mg 1,250 mg PO QID 06/17/23 06/17/23 06/16/23 History tablet (Fiber (calcium polycarbophil)) saw palmetto 160 mg capsule 160 mg PO BID 06/17/23 06/17/23 06/16/23 History Allergies Allergy/AdvReac Type Severity Reaction Status Date / Time adhesive Allergy Unknown Verified 06/16/23 23:59 adhesive tape Allergy Unknown Verified 06/16/23 23:59 butorphanol [From Stadol] Allergy ADR/ALGY-Hy Verified 06/16/23 23:59 potension Iodinated Contrast Media Allergy ALGY-Bliste Verified 06/16/23 23:59 r Current Medications Generic Name Dose Route Start Last Admin Trade Name Freq PRN Reason Stop Dose Admin Hydromorphone HCl 0.2 mg 06/17/23 09:32 06/17/23 10:30 Hydromorphone 1 Mg/Ml Inj 1 Ml IVP 0.2 mg Q4H PRN Administration SEVERE PAIN Sodium Chloride 1,000 mls @ 75 mls/hr 06/17/23 07:00 06/17/23 07:33 Sodium Chloride 0.9% IV 75 mls/hr .[id number] TISHA Administration Senna/Docusate Sodium 1 tab 06/17/23 09:00 06/17/23 08:41 Sennosides-Docusate Tablet PO Not Given DAILY TISHA PFSH Anesthesia Medical History History of nonmelanoma skin cancer Tubular adenoma of colon History of colon polyps History of hemorrhoids Surgical History History of colonoscopy Status post deep brain stimulator placement History of laparoscopic appendectomy History of laparoscopic cholecystectomy History of rhinoplasty History of tonsillectomy and adenoidectomy Social History Smoking and tobacco/nicotine status: former use of tobacco/nicotine Data Anesthesia 06/17/23 00:20 06/17/23 00:20 Short CBC 06/17/23 Range/Units 00:20 WBC 9.73 (3.29-11.43) 10^3/uL Hgb 13.50 (11.27-16.99) g/dL Hct 40.6 (37-53) % MCV 94.6 (82-101) fl Plt Count 150 L (157-399) 10^3/cmm Neut % (Auto) 59.4 % Neut # (Auto) 5.78 (1.8-7.7) 10^3/uL BMP 06/17/23 00:20 Sodium 141 Potassium 4.2 Chloride 106 Carbon Dioxide 29 BUN 18 Creatinine 0.9 Glucose 93 Calcium 8.8 Liver Function 06/17/23 Range/Units 00:20 Total Bilirubin 0.3 (0.15-1.2) mg/dL AST 29 (0-40) U/L ALT 19 (0-41) U/L Alkaline Phosphatase 114 (40-130) U/L Albumin 3.8 (3.5-5.2) g/dL Blood Bank 06/17/23 01:03 Blood Type O Positive Rho(D) Type Rh positive Antibody Screen Negative Coags 06/17/23 00:20 PT 13.90 INR 1.03 Cardiac Studies: 2 No Data to Display
[2023-06-17] MEDS: sodium chloride 0.9% 1,000 ML 30 ML IV (13:34)
--- NOTE | 2023-06-17 13:38 | P.CONIM_ITS ---
Providers/Reason For Consult 2 Consulting Physician/Specialty*: Elvira Wright MD Reason for Consult*: Right subcapital hip fracture Requesting Physician: Dr. Michael Santo Attending Physician: Tomi Pittman Primary Care Provider: Miladis Farias MD History of Present Illness History of Present Illness Víctor Light is a 72 year old male who presented to the emergency room last evening after falling. The patient states he was trying to take off his pants, and he started to lose his balance. His foot was stuck and he could not get it out in time falling onto his right side. He is active for his age, but he does have a deep brain stimulator for tremors, and he lives at home with his . He denies any other reason for his fall other than his loss of balance and the fact that his foot was stuck in his pants. Evaluation in the emergency department demonstrated a subcapital right hip fracture with minimal displacement. These were personally reviewed by me as well. Review of Systems 2 General: Reports: 10 or more systems reviewed and unremarkable except in HPI and below Const: Denies: fever(s) Eyes: Denies: change in vision or photophobia ENMT: Denies: throat pain Card: Denies: chest pain Resp: Denies: dyspnea GI: Denies: abdominal pain : Denies: flank pain Musc: Reports: back pain and extremity pain; Denies: neck pain Skin/Breast: Reports: rash Medications/Allergies Home Medications Medication Instructions Recorded Confirmed Last Taken Type ascorbic acid (vitamin C) 1,000 mg 1,000 mg PO Q12H 04/24/20 06/17/23 06/16/23 History tablet (Vitamin C) docusate sodium 100 mg capsule 100 mg PO TID 04/24/20 06/17/23 06/16/23 History (Colace) flaxseed oil 1,000 mg capsule 1,000 mg PO DAILY 04/24/20 06/17/23 06/16/23 History multivitamin 1 tab PO BID 04/24/20 06/17/23 06/16/23 History omega 9-hia-fvj-fish oil 1,000 mg 1 cap PO DAILY 04/24/20 06/17/23 06/16/23 History (120 mg-180 mg) capsule (Fish Oil) propranolol 40 mg tablet 40 mg PO TID 04/24/20 06/17/23 06/16/23 History sennosides 25 mg tablet 25 mg PO QPM 04/24/20 06/17/23 06/16/23 History tenofovir disoproxil fumarate 300 300 mg PO DAILY 04/24/20 06/17/23 06/16/23 History mg tablet tolterodine 2 mg tablet 2 mg PO BID 04/24/20 06/17/23 06/16/23 History lactobacillus comb no.10 20 20,000 mmu cells PO BID 03/09/22 06/17/23 06/16/23 History billion cell capsule (Probiotic) calcium polycarbophil 625 mg 1,250 mg PO QID 06/17/23 06/17/23 06/16/23 History tablet (Fiber (calcium polycarbophil)) saw palmetto 160 mg capsule 160 mg PO BID 06/17/23 06/17/23 06/16/23 History Allergies Allergy/AdvReac Type Severity Reaction Status Date / Time adhesive Allergy Unknown Verified 06/16/23 23:59 adhesive tape Allergy Unknown Verified 06/16/23 23:59 butorphanol [From Stadol] Allergy ADR/ALGY-Hy Verified 06/16/23 23:59 potension Iodinated Contrast Media Allergy ALGY-Bliste Verified 06/16/23 23:59 r Current Medications Generic Name Dose Route Start Last Admin Trade Name Freq PRN Reason Stop Dose Admin Hydromorphone HCl 0.2 mg 06/17/23 09:32 06/17/23 10:30 Hydromorphone 1 Mg/Ml Inj 1 Ml IVP 0.2 mg Q4H PRN Administration SEVERE PAIN Sodium Chloride 1,000 mls @ 75 mls/hr 06/17/23 07:00 06/17/23 07:33 Sodium Chloride 0.9% IV 75 mls/hr .[id number] TISHA Administration Sodium Chloride 1,000 mls @ 30 mls/hr 06/17/23 13:30 06/17/23 13:34 Sodium Chloride 0.9% IV 06/18/23 13:29 30 mls/hr .Q24H TISHA Administration Senna/Docusate Sodium 1 tab 06/17/23 09:00 06/17/23 08:41 Sennosides-Docusate Tablet PO Not Given DAILY TISHA PFSH Acute 2 PFSH: Medical History History of nonmelanoma skin cancer Tubular adenoma of colon History of colon polyps History of hemorrhoids Surgical History History of colonoscopy Status post deep brain stimulator placement History of laparoscopic appendectomy History of laparoscopic cholecystectomy History of rhinoplasty History of tonsillectomy and adenoidectomy Social History Smoking and tobacco/nicotine status: former use of tobacco/nicotine Vitals/I&O/Wt Last Vital Signs Temp 99.0 F 06/17/23 12:56 Pulse 63 06/17/23 12:56 Resp 18 06/17/23 12:56 BP 97/54 06/17/23 12:56 Pulse Ox 96 06/17/23 12:56 O2 Del Method Room Air 06/17/23 12:56 06/16/23 06/17/23 06/17/23 22:59 06:59 14:59 Output Total 425 / 425 Balance -425 / -425 Weight last 48 hrs Weight 200 lb 12.8 oz Weight 190 lb Physical Exam 2 Const: COMMON NORMALS: no acute distress, average body habitus, patient oriented x3 and alert GENERAL APPEARANCE: cooperative and comfortable O RIENTATION/CONSCIOUSNESS: Yes awake HENMT: COMMON NORMALS: normocephalic and atraumatic HEAD & SCALP: n ormocephalic and atraumatic Eye: GENERAL EYE: appearance normal, both eyes and all related structures Chest: COMMONS NORMALS: normal inspection of the chest Resp: COMMON NORMALS: normal respiratory effort EFFORT & INSPECTION: Yes able to speak in complete sentences and Yes symmetric chest movement Extremity: RIGHT LOWER EXTREMITY: Yes hip joint Right hip: Yes inspection (No significant bruising), Yes palpation (Minimal tenderness to palpation), Yes ROM (Not evaluated) and Yes neurovascular exam (Neuropathy but otherwise intact distally) Neuro: COMMON NORMALS: patient oriented x3 SENSORIUM/ORIENTATION: Yes alert Psych: COMMON NORMALS: mental status grossly normal APPEARANCE: Yes grossly normal ATTITUDE: Yes calm and Yes engaged ATTENTION/CONCENTRATION: Yes attention grossly intact Skin: COMMON NORMALS: no rashes or lesions noted GENERAL SKIN EXAM: no rashes or lesions noted Data 06/17/23 00:20 06/17/23 00:20 Xray Ortho: My impression: I have personally reviewed the patient's x-rays. There is a minimally displaced right subcapital hip fracture. Essentially, the fracture is in anatomic position. Other CT: My impression: CT was reviewed, and there is slight angulation and displacement at the fracture site, but it is felt to be appropriate for cannulated screws. A&P Assessment and plan (1) Subcapital fracture of right hip: Patient presented through the emergency department last evening after a fall at home. He noted he was trying to remove his pants, and his foot got caught he lost his balance and fell. He denied any syncopal episode or other reason for his fall other than his loss of balance. He came to the emergency department where he was found to have a subcapital right hip fracture. CT was obtained. The fracture is in essentially anatomic position with minimal displacement. After review, it was felt to be acceptable for open reduction internal fixation with cannulated screws. The patient is consented for this. Questions were answered and consents will be signed. Qualifiers: Encounter type: initial encounter Fracture type: closed Qualified Code(s): S72.011A - Unspecified intracapsular fracture of right femur, initial encounter for closed fracture Consult Attestations 2 Medical Necessity Statement: Patient requires hospitalization for right subcapital hip fracture. Coding Level of Care Code Acute Code for [facility] Fwd Diagnoses Closed subcapital fracture of right femur, initial encounter S72.011A Encounter type: initial encounter Fracture type: closed
[2023-06-17] MEDS: acetaminophen 1,000 MG/100 ML PIGGYBACK 400 MG IV (13:58)
[2023-06-17] MEDS: gabapentin 300 mg Capsule PO (13:58)
[2023-06-17] MEDS: CELEcoxib 200 mg Capsule 400 MG PO (13:58)
[2023-06-17] MEDS: ceFAZolin 2,000 MG in sodium chloride 0.9% (plus) 50 ML 100 MG IV ×2 (14:13→23:16)
[2023-06-17] MEDS: lidocaine-epi 1% 20 mL INJ 10 ML INJECTION (14:56)
[2023-06-17] MEDS: BUPivacaine 0.5% INJ 30 mL 10 ML INJECTION (14:56)
--- NOTE | 2023-06-17 15:17 | P.OP_ITS ---
Operative Report Date of procedure: June 17, 2023 Pre-op diagnosis: Right subcapital hip fracture Post-op diagnosis: Right subcapital hip fracture Post-op findings: Minimally displaced right subcapital hip fracture Procedure done: Open reduction internal fixation of right subcapital hip fracture with cannulated screws Implants: Stalin cannulated screws x 3 Specimens removed/disposition: None Pathology: None Surgeon: Elvira Wright MD Precision Grinder External: None Anesthesia: General (Intubated, ASA 2) Estimated blood loss (mL): 20 IV fluids (mL): 200 Urine output (mL): 0 (No Espinoza) Complications: None Findings: Nondisplaced right subcapital hip fracture Condition: stable Disposition: PACU (Then return to floor for postoperative rehabilitation and pain management) Brief History: Víctor Light is a 72 year old male who presented to the emergency room last evening after falling. The patient states he was trying to take off his pants, and he started to lose his balance. His foot was stuck and he could not get it out in time falling onto his right side. He is active for his age, but he does have a deep brain stimulator for tremors, and he lives at home with his . He denies any other reason for his fall other than his loss of balance and the fact that his foot was stuck in his pants. Evaluation in the emergency department demonstrated a subcapital right hip fracture with minimal d isplacement. The patient was admitted to the medical service and approved for surgical intervention. Risks and complications were discussed with the patient and his , and plans were made for open reduction internal fixation with Sheldon cannulated screws. Procedure: Patient is brought to the operating theater and after undergoing adequate ge neral anesthesia per LMA, patient was transferred to the fracture table. Fluoroscopy was positioned so that we could visualize the fracture in AP and lateral planes. Maintenance of position of was confirmed. Being satisfied with the position of the femoral head the leg was then prepped with DuraPrep. A shower curtain style drape was utilized to drape out the patient's right lower extremity. Patient's leg was marked in the preoperative holding area and these markings were visualized. A surgical pause was performed. We confirmed administration of preoperative IV vancomycin as well as the site and side of surgery. Fluoroscopy was utilized and an incision was made in appropriate position to allow placement of 3 cannulated screws using the Amy gun as a guide. The most inferior of the inverted triangle wire was placed first. Optimal position was determined with fluoroscopy in AP and lateral. The remaining guidewires were then placed also under fluoroscopic guidance in AP and lateral planes. The Amy gun was removed and the length of guidewires was measured. The cannulated screws were then placed over the guidewire. Guidewires were advanced to appropriate position and subsequently hand tightened. Position of the screws was confirmed in AP and lateral. Being satisfied with the position of the screws, guidewires were removed. AP and lateral images were obtained utilizing fluorosco py. Being satisfied the wound was irrigated, closure was then accomplished with 0 Vicryl in the fascial tissues and 2-0 Monocryl in the subcutaneous tissues. Skin was closed with a running 3-0 Monocryl. The wound was then injected with 0.5% bupivacaine with 1% lidocaine with epinephrine. Sterile dressing was then placed consisting of Dermabond, Steri-Strips and OpSite. The patient was returned the recovery room in satisfactory condition. There were no complications. There were no specimens. Related Problem List Diagnoses (1) Subcapital fracture of right hip:
--- NOTE | 2023-06-17 16:01 | XR_ITS ---
WS: [id number] C-ARM RADIOGRAPHS RIGHT HIP; 2 IMAGES HISTORY: OR PICS R HIP COMPARISON: Radiographs 06/17/2023 Intraoperative screw fixation femoral neck fracture with good alignment. IMPRESSION: Intraoperative imaging during screw fixation of a femoral neck fracture.
--- NOTE | 2023-06-17 16:15 | ANE.PACU2 ---
Inpatient post-anesthesia follow up: Airway intact: Yes Vital signs: Temperature 98.1 F Pulse Rate 61 Respiratory Rate 16 Blood Pressure 106/62 Pulse Oximetry 94 Oxygen Delivery Me thod Room Air Oxygen Flow Rate 6 Fraction of Inspir ed Oxygen Hydration adequate: Yes Nausea and vomiting: No Pain level: 1 Mental status: Baseline
[2023-06-17] MEDS: sennosides-docusate Tablet 2 TAB PO (17:13)
[2023-06-17] MEDS: oxyCODONE 5 mg IR Tab/Cap PO (17:13)
--- NOTE | 2023-06-17 21:56 | P.PN_ITS ---
Subjective 2 Subjective: He reports he is doing okay. His hip is somewhat sore. He denies chest pain or pressure or trouble breathing. Reports that his deep brain stimulator distorted the EKG yesterday. Vitals/I&O/Wt Last Vital Signs Temp 97.9 F 06/17/23 16:56 Pulse 68 06/17/23 16:56 Resp 16 06/17/23 17:13 BP 113/66 06/17/23 16:56 Pulse Ox 96 06/17/23 16:56 O2 Del Method Room Air 06/17/23 16:56 O2 Flow Rate 6 06/17/23 15:53 06/17/23 06/17/23 06/17/23 06:59 14:59 22:59 Intake Total 150 / 150 480 / 630 Output Total 425 / 425 20 / 445 Balance -275 / -275 460 / 185 Weight last 48 hrs Weight 91.081 kg Weight 86.183 kg Physical Exam 2 Narrative: Accompanied by family member. Const: COMMON NORMALS: patient oriented x3 and alert GENERAL APPEARANCE: c ooperative ORIENTATION/CONSCIOUSNESS: Yes awake HENMT: COMMON NORMALS: oropharynx normal Neck/C-Spine: COMMON NORMALS: no JVD Resp: COMMON NORMALS: normal respiratory effort and clear to auscultation bilaterally AUSCULTATION: clear to auscultation bilaterally Cardio: COMMON NORMALS: no JVD, regular rhythm, S1 normal heart sound present, S2 normal heart sound present and No murmurs present (Cardio) RHYTHM: regular rhythm HEART SOUNDS: S1 normal heart sound present and S2 normal heart sound present GI: COMMON NORMALS: Normal to inspection, nondistended, normoactive bowel sounds present, Soft to palpation and non-tender PALPATION: Yes Soft to palpation Extremity: COMMON NORMALS: no joint enlargement and no pedal edema OTHER: Right leg without swelling, perfused. Neuro: COMMON NORMALS: patient oriented x3 and moves all extremities S ENSORIUM/ORIENTATION: Yes alert Skin: COMMON NORMALS: no rashes or lesions noted GENERAL SKIN EXAM: no rashes or lesions noted Data 06/17/23 00:20 06/17/23 00:20 A&P Assessment and plan (1) Closed fracture of right hip: Qualifiers: Encounter type: initial encounter Qualified Code(s): S72.001A - Fracture of unspecified part of neck of right femur, initial encounter for closed fracture (2) Fall: Qualifiers: Encounter type: initial encounter Qualified Code(s): W19.XXXA - Unspecified fall, initial encounter Plan ORIF today. Required IV hydromorphone for pain. Reviewed vitals, CBC, INR, CMP, admitting physician note, orthopedic note. Continue postoperative care. Remove Espinoza catheter. DVT prophylaxis once safe per orthopedics. PT assessment, discharge planning. Discussed with embedded case manager. Stop IV fluid. Abnormal EKG: On presentation EKG reading acute AL. It appears this EKG had been interpreted in the settings of his deep brain stimulator and he was not found to have an AL on presentation from what he tells me. He has had no chest pain or pressure. EKG with artifact from DBS on my interpretation, pending official read. Full code Attestations 2 Medical Necessity Statement*: Continue admission for management after right hip fracture and repair. and High MDM includes amount and/or complexity of data reviewed/ordered [ previous or external records, resulted lab(s)/test(s), ordered lab(s)/test(s), independent test interpretation and other healthcare professional discussion] and described risk of complication, morbidity or mortality of management as documented Diagnoses Closed fracture of right hip S72.001A Encounter type: initial encounter Fall W19.XXXA Encounter type: initial encounter
[2023-06-18] VITALS (10 sets, daily range): BP systolic 96–119; BP diastolic 56–68; PULSE 58–78; RESP 15–19; TEMP 36.7–36.9; O2SAT 93–98
[2023-06-18 05:55] LABS: Basophils % 0.3 %; Eosinophils # 0.1 10^3/uL (0.0-0.8); Eosinophils % 1.4 %; Lymphocytes % 31.5 %; Mean Corpuscular HGB Conc 32.2 g/dL (30-55); Mean Corpuscular Hemoglobin 31.5 pg (27-33); Mean Corpuscular Volume 97.8 fl (82-101); Mean Platelet Volume 9.6 fL (7.4-10.4); Monocytes # 1.1 10^3/uL (0.2-0.9); Monocytes % 18.2 %; Neutrophils # 3.03 10^3/uL (1.8-7.7); Neutrophils % 48.4 %; Nucleated Red Blood Cells % 0 %; Platelet Count 108 10^3/cmm (157-399); Red Blood Count 3.68 10^6/uL (3.85-5.65); Red Cell Distribution Width 12.6 % (12.1-15.1); White Blood Count 6.26 10^3/uL (3.29-11.43)
[2023-06-18 06:09] LABS: Anion Gap 9.2 (5-19); Blood Urea Nitrogen 13 mg/dL (8-23); Calcium 7.9 mg/dL (8.5-10.5); Carbon Dioxide 26 mmol/L (22-29); Chloride 107 mmol/L (98-107); Creatinine Clr Calc Pharmacy 81.5474; Glucose 102 mg/dL (65-115); Magnesium 2.1 mg/dL (1.7-2.3); Osmolality Calculated 286 mOsm/kg (285-295); Potassium 4.2 mmol/L (3.5-5.1); Sodium 138 mmol/L (136-145)
[2023-06-18] MEDS: ceFAZolin 2,000 MG in sodium chloride 0.9% (plus) 50 ML 100 MG IV ×2 (06:24→13:50)
[2023-06-18] MEDS: aspirin 325 mg EC Tablet PO (08:18)
[2023-06-18] MEDS: multivitamin therapeutic Tablet 1 TAB PO (08:18)
[2023-06-18] MEDS: sennosides-docusate Tablet 1 TAB PO (08:19)
[2023-06-18] MEDS: CELEcoxib 200 mg Capsule PO (08:20)
[2023-06-18] MEDS: oxyCODONE 5 mg IR Tab/Cap PO ×2 (08:22→13:02)
--- NOTE | 2023-06-18 09:11 | PC.CHAP ---
Pastoral Care Encounter/Spiritual Assessment Type of Contact [] Declined energy derivatives trader visit [] Patient/Family/Request visit [] Outpatient visit [] Follow-up visit [] Physician referral [] Code/Alert [x] Routine visit [] Staff referral [] Actively dying [] Patient sleeping [] Family support [] [] Out of room [] Palliative care [] [] Receiving care in room [] Pre-surgical visit [] Trauma [] Long length of stay [] ICU visit [] Other: Relational/Emotional Strength [x] Patient feels connected with others/family/visitors/staff [] Distress [] Loneliness/isolation [] Abandonment Spirituality of Patient [x] Person of Harini [] Attends Catholic of their Harini [x] Believes in Prayer [] Reads Bible or Worship materials [] There are Spiritual issues to be addressed [employer] Interventions [x] Prayer [x] Active listening [] Non-anxious presence [x] Spiritual/emotional support [] Crisis/trauma care [] Spiritual counseling [] Bereavement support [] Provided bereavement packet [] Provided Bible/devotional materials [] Provided toy/stuffed animal, coloring book to patient or family member [] Provided Communion [] Anointing/[place] [] Salvation [x] Completed spiritual assessment [] Other: Impact on Illness or Injury [] Angry [] Fearful [] Anxious [] Often cries [] Exhaustion [] Unable to work [] Unable to attend uatsdin [] Unable to walk/stand [] Unable to read [] Unable to drive [] Unable to eat/drink [] Unable to sleep [] Unable to be with family [] Patient intubated [] Other: Summary Time spent with patient 5 min
--- NOTE | 2023-06-18 10:32 | PC.SOCIAL ---
IMM Update pg 2 of IMM updated and reviewed w/ patient. Copy provided and copy dated, initialed and placed in chart.
[2023-06-18] MEDS: propranolol 40 mg Tablet PO (15:47)
--- NOTE | 2023-06-18 15:58 | P.PN_ITS ---
Subjective 2 Subjective: Patient reports he is doing well. He has been working with physical therapy successfully. Plans are being made for his potential discharge home with home health. He is felt to be safe for this. Medications: Reviewed: Yes Vitals/I&O/Wt Last Vital Signs Temp 98.3 F 06/18/23 11:36 Pulse 75 06/18/23 11:36 Resp 19 H 06/18/23 13:02 BP 119/64 06/18/23 14:13 Pulse Ox 96 06/18/23 11:36 O2 Del Method Room Air 06/18/23 11:36 O2 Flow Rate 6 06/17/23 15:53 06/18/23 06/18/23 06/18/23 06:59 14:59 22:59 Intake Total 170 / 800 1340 / 1340 Output Total 400 / 845 Balance -230 / -45 1340 / 1340 Weight last 48 hrs Weight 195 lb 14.4 oz Weight 200 lb 12.8 oz Weight 190 lb Physical Exam 2 Const: COMMON NORMALS: no acute distress, average body habitus, patient oriented x3 and alert GENERAL APPEARANCE: cooperative and comfortable O RIENTATION/CONSCIOUSNESS: Yes awake HENMT: COMMON NORMALS: normocephalic and atraumatic HEAD & SCALP: n ormocephalic and atraumatic Eye: GENERAL EYE: appearance normal, both eyes and all related structures Chest: COMMONS NORMALS: normal inspection of the chest Resp: COMMON NORMALS: normal respiratory effort EFFORT & INSPECTION: Yes able to speak in complete sentences and Yes symmetric chest movement Extremity: RIGHT LOWER EXTREMITY: Yes hip joint (Dressing is dry and intact, he is somewhat sore to palpation.) Right hip: Yes inspection (No significant ecchymosis or swelling), Yes ROM (Not evaluated) and Yes neurovascular exam (Intact with no evidence of DVT) Neuro: COMMON NORMALS: patient oriented x3 SENSORIUM/ORIENTATION: Yes alert Psych: COMMON NORMALS: mental status grossly normal APPEARANCE: Yes grossly normal ATTITUDE: Yes calm and Yes engaged ATTENTION/CONCENTRATION: Yes attention grossly intact Skin: COMMON NORMALS: no rashes or lesions noted GENERAL SKIN EXAM: no rashes or lesions noted Data 06/18/23 05:18 06/18/23 05:18 A&P Assessment and plan (1) Subcapital fracture of right hip: Patient presented through the emergency department last evening after a fall at home. He noted he was trying to remove his pants, and his foot got caught he lost his balance and fell. He denied any syncopal episode or other reason for his fall other than his loss of balance. He came to the emergency department where he was found to have a subcapital right hip fracture. CT was obtained. The fracture is in essentially anatomic position with minimal displacement. Open reduction internal fixation utilizing cannulated screws was accomplished uneventfully. Patient worked with physical therapy today, and appears ready for discharge to home with home health Qualifiers: Encounter type: initial encounter Fracture type: closed Qualified Code(s): S72.011A - Unspecified intracapsular fracture of right femur, initial encounter for closed fracture Attestations 2 Medical Necessity Statement*: Per medical service Coding [facility] Diagn[facility] Closed subcapital fracture of right femur, initial encounter S72.011A Encounter type: initial encounter Fracture type: closed
--- NOTE | 2023-06-18 15:59 | P.DS_ITS ---
Discharge Providers Date of Admission: 06/17/23 04:23 Date of Discharge: June 18, 2023 Attending Provider at Admission: Luis Enrique Mendez MD Attending Provider at Discharge: Tomi Pittman Primary Care Provider: Miladis Farias MD Diagnoses at Discharge Discharge Diagnosis (1) Closed fracture of right hip: Status: Acute Qualifiers: Encounter type: initial encounter Qualified Code(s): S72.001A - Fracture of unspecified part of neck of right femur, initial encounter for closed fracture (2) Fall: Status: Acute Qualifiers: Encounter type: initial encounter Qualified Code(s): W19.XXXA - Unspecified fall, initial encounter Reason for Visit Reason for Visit: Fall Right side arm, hip, leg Hospital Course Hospital Course Pleasant 72-year-old gentleman was admitted after a fall with right subcapital hip fracture. On presentation his EKG machine read possible IA however, study was essentially uninterpretable due to his deep brain stimulator, and he has not had any chest pain pressure or other symptoms of IA. He underwent unremarkable ORIF on 06/16, has done well with therapy, and is returning home with home health to continue his recovery. A walker is ordered for him so that he may use it at all times and he is aware to maintain strict fall precautions. Physical Exam Narrative: Accompanied by family member. Ambulating with physical therapy with a walker. Const: COMMON NORMALS: patient oriented x3 and alert GENERAL APPEARANCE: cooperative ORIENTATION/CONSCIOUSNESS: Yes awake HENMT: COMMON NORMALS: oropharynx normal Neck/C-Spine: COMMON NORMALS: no JVD Resp: COMMON NORMALS: normal respiratory effort and clear to auscultation bilaterally AUSCULTATION: clear to auscultation bilaterally Cardio: COMMON NORMALS: no JVD, regular rhythm, S1 normal heart sound present, S2 normal heart sound present and No murmurs present (Cardio) RHYTHM: regular rhythm HEART SOUNDS: S1 normal heart sound present and S2 normal heart sound present GI: COMMON NORMALS: Normal to inspection, nondistended, normoactive bowel sounds present, Soft to palpation and non-tender PALPATION: Yes Soft to palpation Extremity: COMMON NORMALS: no joint enlargement and no pedal edema OTHER: Right leg without swelling, perfused. Neuro: COMMON NORMALS: patient oriented x3 and moves all extremities SENSORIUM/ORIENTATION: Yes alert Skin: COMMON NORMALS: no rashes or lesions noted GENERAL SKIN EXAM: no rashes or lesions noted Discharge Data Studies Completed and Pending Completed Studies During Hospitalization Category Date Time Status CT hip RT wo con* [id number] Stat Cat Scan 06/17/23 01:18 Completed XR chest 1V portable [id number] Stat Exams 06/17/23 00:36 Completed XR hip RT 2-3V wo/w pel* [id number] Routine Exams 06/17/23 16:01 Completed XR hip RT 2-3V wo/w pel* [id number] Stat Exams 06/17/23 00:09 Completed Pending at discharge Category Date Time Status CBC Auto Diff [Complete Blood Count w/Auto] AM LABS Lab 06/19/23 04:00 Ordered Radiology Impressions Chest X-Ray 06/17/23 00:36 IMPRESSION: 1. Negative for infiltrate 2. Bilateral vagal stimulators. 3. Mild cardiomegaly. 4. Emphysematous changes. Hip CT 06/17/23 01:18 IMPRESSION: 1. Acute subcapital right femoral neck fracture with mild impaction. 2. No significant change in cystic mass in the right thigh anterior musculature, measuring about 12 cm. Unclear etiology. Laboratory Results WBC 6.26 10^3/uL (3.29-11.43) 06/18/23 05:18 RBC 3.68 10^6/uL (3.85-5.65) L 06/18/23 05:18 Hgb 11.60 g/dL (11.27-16.99) 06/18/23 05:18 Hct 36.0 % (37-53) L 06/18/23 05:18 MCV 97.8 fl (82-101) 06/18/23 05:18 MCH 31.5 pg (27-33) 06/18/23 05:18 MCHC 32.2 g/dL (30-55) 06/18/23 05:18 RDW 12.6 % (12.1-15.1) 06/18/23 05:18 Plt Count 108 10^3/cmm (157-399) L 06/18/23 05:18 MPV 9.6 fL (7.4-10.4) 06/18/23 05:18 Neut % (Auto) 48.4 % 06/18/23 05:18 Lymph % (Auto) 31.5 % 06/18/23 05:18 Walton % (Auto) 18.2 % 06/18/23 05:18 Eos % (Auto) 1.4 % 06/18/23 05:18 Baso % (Auto) 0.3 % 06/18/23 05:18 Neut # (Auto) 3.03 10^3/uL (1.8-7.7) 06/18/23 05:18 Lymph # (Auto) 2.0 10^3/uL (0.8-4.8) 06/18/23 05:18 Walton # (Auto) 1.1 10^3/uL (0.2-0.9) H 06/18/23 05:18 Eos # (Auto) 0.1 10^3/uL (0.0-0.8) 06/18/23 05:18 Baso # (Auto) 0.0 10^3/uL (0.0-0.1) 06/18/23 05:18 Nucleated RBC % (auto) 0 % 06/18/23 05:18 Nucleated RBCs # 0.0 /100WBC 06/18/23 05:18 PT 13.90 SECONDS (12.1-14.9) 06/17/23 00:20 INR 1.03 (0.8-1.2) 06/17/23 00:20 Sodium 138 mmol/L (136-145) 06/18/23 05:18 Potassium 4.2 mmol/L (3.5-5.1) 06/18/23 05:18 Chloride 107 mmol/L (98-107) 06/18/23 05:18 Carbon Dioxide 26 mmol/L (22-29) 06/18/23 05:18 Anion Gap 9.2 (5-19) 06/18/23 05:18 BUN 13 mg/dL (8-23) 06/18/23 05:18 Creatinine 0.9 mg/dL (0.7-1.2) 06/18/23 05:18 GFR Calculation Not Reportable 06/18/23 05:18 Glucose 102 mg/dL (65-115) 06/18/23 05:18 Calculated Osmolality 286 mOsm/kg (285-295) 06/18/23 05:18 Calcium 7.9 mg/dL (8.5-10.5) L 06/18/23 05:18 Magnesium 2.1 mg/dL (1.7-2.3) 06/18/23 05:18 Total Bilirubin 0.3 mg/dL (0.15-1.2) 06/17/23 00:20 AST 29 U/L (0-40) 06/17/23 00:20 ALT 19 U/L (0-41) 06/17/23 00:20 Alkaline Phosphatase 114 U/L (40-130) 06/17/23 00:20 Total Protein 8.3 g/dL (6.6-8.7) 06/17/23 00:20 Albumin 3.8 g/dL (3.5-5.2) 06/17/23 00:20 Globulin 4.5 g/dL (1.3-4.6) 06/17/23 00:20 Vitamin B12 839 pg/mL (232-1245) 06/17/23 00:20 Blood Type O Positive 06/17/23 01:03 Rho(D) Type Rh positive 06/17/23 01:03 Antibody Screen Negative 06/17/23 01:03 Vitals Last Vital Signs Temp 98.3 F 06/18/23 11:36 Pulse 75 06/18/23 11:36 Resp 19 H 06/18/23 13:02 BP 119/64 06/18/23 14:13 Pulse Ox 96 06/18/23 11:36 O2 Del Method Room Air 06/18/23 11:36 O2 Flow Rate 6 06/17/23 15:53 Discharge Plan Discharge Patient Disposition: Home Health Service Condition: Stable Prescriptions: New celecoxib 200 mg Capsule 200 mg PO DAILY 30 Days Qty: 30 0RF acetaminophen 500 mg Tablet 500 mg PO Q4H PRN (Reason: fever) 15 Days Qty: 0 0RF aspirin 325 mg Tablet,Delayed Release (Dr/Ec) 325 mg PO DAILY 30 Days Qty: 0 0RF oxycodone 5 mg tablet 5 mg PO Q4H PRN (Reason: pain) 7 Days Qty: 40 0RF Continued multivitamin Tablet 1 tab PO BID ascorbic acid (vitamin C) [Vitamin C] 1,000 mg Tablet 1,000 mg PO Q12H flaxseed oil 1,000 mg Capsule 1,000 mg PO DAILY propranolol 40 mg tablet 40 mg PO TID tolterodine 2 mg tablet 2 mg PO BID docusate sodium [Colace] 100 mg Capsule 100 mg PO TID tenofovir disoproxil fumarate 300 mg Tablet 300 mg PO DAILY sennosides 25 mg Tablet 25 mg PO QPM omega [id number] oil [Fish Oil] 1,000 mg (120 mg-180 mg) Capsule 1 cap PO DAILY saw palmetto 160 mg Capsule 160 mg PO BID Fiber (calcium polycarbophil) 625 mg Tablet 1,250 mg PO QID Probiotic 20 billion cell Capsule 20,000 mmu cells PO BID Discharge Orders: Discharge Order (Routine); Ordered 06/18/23 Ordered By: Tomi Pittman Other Ambulatory Orders: DME: Walker (Order) Location: None Selected Ordered By: Tomi Pittman Referrals: [facility] [Outside] Miladis Farias MD [Primary Care Provider] - 06/22/23 9:30 am Elvira Wright MD [Physician] - 07/06/23 1:45 pm Discharge Activity: Increase activity as tolerated, Use walker/crutches as instructed and As per PT/OT instructions Patient Instructions: Aspirin (By mouth), Oxycodone, Rapid Release (By mouth), Celecoxib (By mouth), Fall Prevention (GEN), ORIF of Hip Fracture (GEN), Opioid Safety Activity Restrictions/Additional Instructions: Ice to right hip. You may weight-bear as tolerated. Use walker, or crutches, per physical therapy recommendation. Keep clear dressing in place until it comes off on its own. You may shower, but do not soak your hip in water. Maintain strict fall precautions. Use walker at all times. Seek medical attention in case of any worsening or new concerning symptoms. Discharge Attestations Time Spent in Discharge Care*: greater than 30 min Quality Metrics Clinical Quality Measures [ No reported AMI, CVA or VTE this stay] Coding Level of Care Code 25017 Total time (in minutes) for Discharge: 35 Diagnoses Closed fracture of right hip S72.001A Encounter type: initial encounter Fall W19.XXXA Encounter type: initial encounter
== END 2023-06-18 16:38 | disposition home health service (06) | DRG 482 ==
LOC: ER 06-17 04:13 → ER IP 06-17 04:28 → MEDSURG 06-17 06:37
PROVIDERS: Specialist; Admitting Provider Internal Medicine; Emergency Provider Emergency Medicine; PCP Family Medicine; Visit Provider Internal Medicine
PROC: 0QH634Z Insertion of Internal Fixation Device into Right Upper Femur, Percutaneous Approach (ICD-10-PCS; CPT 27236; principal; 2023-06-17 13:50)
DX: S72.011A Unspecified intracapsular fracture of right femur, initial encounter for closed fracture (principal); W01.0XXA Fall on same level from slipping, tripping and stumbling without subsequent striking against object, initial encounter; R25.1 Tremor, unspecified; Z96.82 Presence of neurostimulator; Z85.828 Personal history of other malignant neoplasm of skin; Z86.010 Personal history of colon polyps; Z87.891 Personal history of nicotine dependence
CPT/HCPCS: 36415; 71045; 73502; 73700; 76000; 80048; 80053; 82607; 83735; 85025; 85610; 86850; 86900; 93005; 96374; 96375; 97110; 97116; 97161; 97166; 97530; 99285; C1713; J0131; J0690; J1170; J2270; J2371; J2405; J2704; J3010; J3490; J7030

== ENCOUNTER → 2023-07-07 14:11 | Outpatient (BNVA) | payer MEDICARE, BC, SELFPAY | PROVIDERS: PCP Family Medicine; Visit Provider Specialist | DX: S72.011A Unspecified intracapsular fracture of right femur, initial encounter for closed fracture (principal); S72.001A Fracture of unspecified part of neck of right femur, initial encounter for closed fracture; X58.XXXA Exposure to other specified factors, initial encounter; Z79.899 Other long term (current) drug therapy | CPT/HCPCS: 73502; 99024 ==

== ENCOUNTER → 2023-07-12 08:15 | Outpatient (BNVA) | payer MEDICARE, BC, SELFPAY | PROVIDERS: PCP Family Medicine; Visit Provider Podiatrist Foot & Ankle Surgery | DX: B35.1 Tinea unguium (principal); I73.9 Peripheral vascular disease, unspecified; G62.9 Polyneuropathy, unspecified; L97.512 Non-pressure chronic ulcer of other part of right foot with fat layer exposed | CPT/HCPCS: 11055; 11721 ==

== ENCOUNTER → 2023-08-09 09:04 | Outpatient (BNVA) | payer MEDICARE, BC, SELFPAY | PROVIDERS: PCP Family Medicine; Visit Provider Nurse Practitioner Family | DX: L57.8 Other skin changes due to chronic exposure to nonionizing radiation (principal); L81.4 Other melanin hyperpigmentation; L82.1 Other seborrheic keratosis; Z85.828 Personal history of other malignant neoplasm of skin | CPT/HCPCS: 99213 ==

== ENCOUNTER → 2023-08-18 15:49 | Outpatient (BNVA) | payer MEDICARE, BC, SELFPAY | PROVIDERS: PCP Family Medicine; Visit Provider Specialist | DX: S72.011D Unspecified intracapsular fracture of right femur, subsequent encounter for closed fracture with routine healing; X58.XXXD Exposure to other specified factors, subsequent encounter | CPT/HCPCS: 73502; 99213 ==

== ENCOUNTER → 2023-09-13 09:30 | Outpatient (BNVA) | payer MEDICARE, BC, SELFPAY | PROVIDERS: PCP Family Medicine; Visit Provider Podiatrist Foot & Ankle Surgery | DX: B35.1 Tinea unguium (principal); I73.9 Peripheral vascular disease, unspecified; G62.9 Polyneuropathy, unspecified; L97.512 Non-pressure chronic ulcer of other part of right foot with fat layer exposed | CPT/HCPCS: 11721 ==

== ENCOUNTER → 2023-11-23 07:57 | Outpatient (BNVA) | payer MEDICARE, BC, SELFPAY | PROVIDERS: PCP Family Medicine; Visit Provider Podiatrist Foot & Ankle Surgery | DX: B35.1 Tinea unguium (principal); I73.9 Peripheral vascular disease, unspecified; G62.9 Polyneuropathy, unspecified; L84 Corns and callosities; B35.3 Tinea pedis | CPT/HCPCS: 11055; 11721; 99213 ==

== ENCOUNTER → 2023-12-09 13:26 | Outpatient (BNVA) | payer MEDICARE, BC, SELFPAY | PROVIDERS: PCP Family Medicine; Visit Provider Nurse Practitioner Family | DX: L57.8 Other skin changes due to chronic exposure to nonionizing radiation (principal); L81.4 Other melanin hyperpigmentation; L82.1 Other seborrheic keratosis; Z85.828 Personal history of other malignant neoplasm of skin; L57.0 Actinic keratosis; D48.5 Neoplasm of uncertain behavior of skin | CPT/HCPCS: 11102; 17000; 99214 ==

== ENCOUNTER 2023-12-10 08:41 | Outpatient (CLI) | payer MEDICARE, BC, SELFPAY ==
[2023-12-10 10:01] LABS: Tumor Marker Alpha Fetoprotein 1.8 ng/mL (0-8.3)
[2023-12-10 10:13] LABS: Alanine Aminotransferase 17 U/L (0-41); Albumin Level 3.8 g/dL (3.5-5.2); Alkaline Phosphatase 109 U/L (40-130); Anion Gap 12.3 (5-19); Aspartate Amino Transferase 28 U/L (0-40); Blood Urea Nitrogen 15 mg/dL (8-23); Calcium 8.4 mg/dL (8.5-10.5); Carbon Dioxide 28 mmol/L (22-29); Chloride 102 mmol/L (98-107); Globulin 4.2 g/dL (1.3-4.6); Glucose 92 mg/dL (65-115); Osmolality Calculated 286 mOsm/kg (285-295); Potassium 4.3 mmol/L (3.5-5.1); Sodium 138 mmol/L (136-145); Total Bilirubin 0.3 mg/dL (0.15-1.2)
[2023-12-10 10:17] LABS: Hepatitis B Surface Antigen Reactive (Nonreactive)
[2023-12-11 08:09] LABS: Hepatitis B Envelope Antigen NON-REACTIVE (NON-REACTIVE); Hepatitis B Surface AG REACTIVE (NON-REACTIVE); Hepatitis BE Antibody REACTIVE (NON-REACTIVE)
[2023-12-14 17:21] LABS: Hepatitis B Virus DNA NOT DETECTED (NOT DETECTED); Hepatitis B Virus DNA PCR NOT DETECTED Log IU/mL (NOT DETECTED)
== END 2023-12-10 08:42 | disposition home or self-care (01) ==
LOC: LAB 08:42
PROVIDERS: PCP Family Medicine; Visit Provider Internal Medicine Gastroenterology
DX: B18.1 Chronic viral hepatitis B without delta-agent (principal); Z11.59 Encounter for screening for other viral diseases
CPT/HCPCS: 36415; 80053; 82105; 86707; 87340; 87350; 87517

== ENCOUNTER → 2024-02-04 10:55 | Outpatient (BNVA) | payer MEDICARE, BC, SELFPAY | PROVIDERS: PCP Family Medicine; Visit Provider Podiatrist Foot & Ankle Surgery | DX: B35.1 Tinea unguium (principal); I73.9 Peripheral vascular disease, unspecified; G62.9 Polyneuropathy, unspecified; L84 Corns and callosities | CPT/HCPCS: 11055; 11721 ==

== ENCOUNTER → 2024-04-13 12:57 | Outpatient (BNVA) | payer MEDICARE, BC, SELFPAY | PROVIDERS: PCP Family Medicine; Visit Provider Podiatrist Foot & Ankle Surgery | DX: I73.9 Peripheral vascular disease, unspecified (principal); B35.1 Tinea unguium; L84 Corns and callosities; G62.9 Polyneuropathy, unspecified | CPT/HCPCS: 11055; 11721 ==

== ENCOUNTER → 2024-04-18 08:20 | Outpatient (BNVA) | payer MEDICARE, BC, SELFPAY | PROVIDERS: PCP Family Medicine; Visit Provider Nurse Practitioner Family | DX: L57.8 Other skin changes due to chronic exposure to nonionizing radiation (principal); L81.4 Other melanin hyperpigmentation; L82.1 Other seborrheic keratosis; L91.8 Other hypertrophic disorders of the skin; Z08 Encounter for follow-up examination after completed treatment for malignant neoplasm; Z85.828 Personal history of other malignant neoplasm of skin; C44.519 Basal cell carcinoma of skin of other part of trunk; L57.0 Actinic keratosis | CPT/HCPCS: 17000; 17261; 99214 ==

== ENCOUNTER 2024-05-30 10:08 | Outpatient (CLI) | payer MEDICARE, BC, SELFPAY ==
[2024-05-30 11:12] LABS: Alanine Aminotransferase 17 U/L (0-41); Albumin Level 3.8 g/dL (3.5-5.2); Alkaline Phosphatase 115 U/L (40-130); Aspartate Amino Transferase 31 U/L (0-40); Blood Urea Nitrogen 14 mg/dL (8-23); Calcium 8.8 mg/dL (8.5-10.5); Carbon Dioxide 30 mmol/L (22-29); Chloride 104 mmol/L (98-107); Globulin 4.5 g/dL (1.3-4.6); Glucose 93 mg/dL (65-115); Osmolality Calculated 288 mOsm/kg (285-295); Sodium 139 mmol/L (136-145); Total Bilirubin 0.5 mg/dL (0.15-1.2); Total Protein 8.3 g/dL (6.6-8.7)
[2024-05-30 11:59] LABS: Hepatitis B Surface Antigen Reactive (Nonreactive)
[2024-05-31 09:59] LABS: Hepatitis B Envelope Antigen NON-REACTIVE (NON-REACTIVE); Hepatitis BE Antibody REACTIVE (NON-REACTIVE)
== END 2024-05-30 10:09 | disposition home or self-care (01) ==
PROVIDERS: PCP Family Medicine; Visit Provider Internal Medicine Gastroenterology
DX: B18.1 Chronic viral hepatitis B without delta-agent (principal)
CPT/HCPCS: 36415; 80053; 86707; 87340; 87350; 87517

== ENCOUNTER → 2024-06-15 12:41 | Outpatient (BNVA) | payer MEDICARE, BC, SELFPAY | PROVIDERS: PCP Family Medicine; Visit Provider Podiatrist Foot & Ankle Surgery | DX: I73.9 Peripheral vascular disease, unspecified (principal); B35.1 Tinea unguium; L84 Corns and callosities; G62.9 Polyneuropathy, unspecified | CPT/HCPCS: 11056; 11721 ==

== ENCOUNTER → 2024-08-01 10:30 | Outpatient (BNVA) | payer MEDICARE, BC, SELFPAY | PROVIDERS: PCP Family Medicine; Visit Provider Nurse Practitioner Family | DX: L82.1 Other seborrheic keratosis (principal); L57.8 Other skin changes due to chronic exposure to nonionizing radiation; L81.4 Other melanin hyperpigmentation; Z08 Encounter for follow-up examination after completed treatment for malignant neoplasm; Z85.828 Personal history of other malignant neoplasm of skin; L57.0 Actinic keratosis | CPT/HCPCS: 17000; 99213 ==

== ENCOUNTER → 2024-08-15 12:48 | Outpatient (BNVA) | payer MEDICARE, BC, SELFPAY | PROVIDERS: PCP Family Medicine; Visit Provider Podiatrist Foot & Ankle Surgery | DX: I73.9 Peripheral vascular disease, unspecified (principal); B35.1 Tinea unguium; L84 Corns and callosities; G62.9 Polyneuropathy, unspecified | CPT/HCPCS: 11055; 11721 ==

== ENCOUNTER → 2024-10-18 13:04 | Outpatient (BNVA) | payer MEDICARE, BC, SELFPAY | PROVIDERS: PCP Nurse Practitioner Family; Visit Provider Podiatrist Foot & Ankle Surgery | DX: I73.9 Peripheral vascular disease, unspecified (principal); B35.1 Tinea unguium; L84 Corns and callosities; G62.9 Polyneuropathy, unspecified | CPT/HCPCS: 11055; 11721 ==

== ENCOUNTER → 2024-12-27 13:07 | Outpatient (BNVA) | payer MEDICARE, BC, SELFPAY | PROVIDERS: PCP Nurse Practitioner Family; Visit Provider Podiatrist Foot & Ankle Surgery | DX: I73.9 Peripheral vascular disease, unspecified (principal); B35.1 Tinea unguium; L84 Corns and callosities; G62.9 Polyneuropathy, unspecified | CPT/HCPCS: 11055; 11721 ==

== ENCOUNTER → 2025-02-05 13:28 | Outpatient (BNVA) | payer MEDICARE, BC, SELFPAY | PROVIDERS: PCP Nurse Practitioner Family; Visit Provider Nurse Practitioner Family | DX: L57.8 Other skin changes due to chronic exposure to nonionizing radiation (principal); Z85.828 Personal history of other malignant neoplasm of skin; L81.4 Other melanin hyperpigmentation; L57.0 Actinic keratosis; L82.1 Other seborrheic keratosis; Z08 Encounter for follow-up examination after completed treatment for malignant neoplasm | CPT/HCPCS: 17000; 99213 ==